=== PATIENT | male | born 1965 | race African-American/Black ===

== ENCOUNTER 2018-12-20 06:38 | Emergency (ER) | payer MEDICAID ==
[~2018-12-20] VITALS: Ht 167.6 cm; Wt 68.7 kg
[~2018-12-20 06:38] MED LIST: ASPI-611 PO; HYDR-4383 PO; LANTUS SQ; LISI-222 PO
[2018-12-20 06:39] VITALS: BP 141/105
[2018-12-20] MEDS ORDERED: NO HOME MEDS (07:33)
[2018-12-20 07:35] LABS: URINE AMPHETAMINE SCREEN POSITIVE (Neg); URINE BARBITUATE SCREEN NEGATIVE (Neg); URINE BENZODIAZEPINES SCREEN NEGATIVE (Neg); URINE CANNABINOID SCREEN POSITIVE (Neg); URINE COCAINE SCREEN NEGATIVE (Neg); URINE METHADONE SCREEN NEGATIVE (Neg); URINE OPIATE SCREEN NEGATIVE (Neg); URINE PHENCYCLIDINE SCREEN NEGATIVE (Neg)
[2018-12-20 07:35] LABS: BASOPHILS % (AUTO) 0.3 % (0-1); EOSINOPHILS % (AUTO) 0.6 % (0-6); HEMATOCRIT 44.8 % (42.0-52.0); HEMOGLOBIN 15.3 g/dl (14.0-17.9); LYMPHOCYTES # (AUTO) 0.9 X10'3 (1.1-4.8); LYMPHOCYTES % (AUTO) 17.2 % (21-51); MEAN CORPUSCULAR HEMOGLOBIN 32.2 PG (27.0-31.0); MEAN CORPUSCULAR HGB CONC 34.2 % (33.0-36.5); MEAN CORPUSCULAR VOLUME 94.2 FL (78-98); MEAN PLATELET VOLUME 10.6 FL (7.4-10.4); MONOCYTES # (AUTO) 0.3 X10'3 (0-0.9); MONOCYTES % (AUTO) 6.3 % (2-12); NEUTROPHILS % (AUTO) 75.6 % (42-75); PLATELET COUNT 167 X10'3 (140-440); RED BLOOD COUNT 4.75 X10'6 (4.70-6.10); RED CELL DISTRIBUTION WIDTH 12.2 % (11.5-14.5); WHITE BLOOD COUNT 5.3 X10'3 (4.5-11.0)
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
[2018-12-20 07:52] LABS: ALANINE AMINOTRANSFERASE 137 U/L (12-78); ALBUMIN 3.7 G/DL (3.4-5.0); ALBUMIN/GLOBULIN RATIO 0.8 (1.1-1.5); ALKALINE PHOSPHATASE 299 IU/L (46-116); ANION GAP 8 (8-16); ASPARTATE AMINO TRANSFERASE 70 U/L (10-37); BILIRUBIN,TOTAL 0.4 MG/DL (0.1-1.0); BLOOD UREA NITROGEN 12 MG/DL (7-18); BUN/CREATININE RATIO 10.9 (5.4-32.0); CALCIUM 8.7 MG/DL (8.5-10.1); CHLORIDE 91 MMOL/L (99-107); ETHANOL < 0.010 GM/DL (0.0-0.010); POTASSIUM 4.5 MMOL/L (3.5-5.1); SODIUM 130 MMOL/L (135-145); TOTAL CARBON DIOXIDE 31.2 MMOL/L (24-32); TOTAL PROTEIN 8.2 G/DL (6.4-8.2); eGFR 85 ML/MIN
[2018-12-20 08:01] LABS: GLUCOSE 601 MG/DL (70-104)
[2018-12-20] MEDS ORDERED: metFORMIN 500mg tablet PO ONE (08:10)
[2018-12-20] MEDS ORDERED: normal saline 1000ML IV soln IV ONE (08:10)
--- NOTE | 2018-12-20 08:10 | NUR ---
GAVE PT SANDWICH, CHEESESTICK, MILK AND APPLESAUCE, [facility] ORDERED BREAKFAST TRAY.
--- NOTE | 2018-12-20 08:20 | NUR ---
STARTED 20 GAUGE IV RIGHT HAND PER DR VAZQUEZ ORDERS DUE TO BG 601
[2018-12-20] MEDS ORDERED: METF500C MC (08:45)
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
--- NOTE | 2018-12-20 09:16 | NUR ---
[employer] AT BEDSIDE, IV REMOVED, CATH INTACT. PATEINT COOPERATIVE AND WALKED OUT ED WITH [employer].
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
== END 2018-12-20 09:19 | disposition home or self-care (01) ==
LOC: ER 06:39
DX: E11.65 Type 2 diabetes mellitus with hyperglycemia (principal); I10 Essential (primary) hypertension; F32.9 Major depressive disorder, single episode, unspecified; F12.90 Cannabis use, unspecified, uncomplicated; F15.90 Other stimulant use, unspecified, uncomplicated; Z90.49 Acquired absence of other specified parts of digestive tract; Z56.0 Unemployment, unspecified; Z59.0 Homelessness; Z88.6 Allergy status to analgesic agent; Z88.8 Allergy status to other drugs, medicaments and biological substances
CPT/HCPCS: 36415; 80053; 80305; 80320; 85025; 96360; 99283; J7030

== ENCOUNTER 2019-11-04 07:20 | Inpatient (IN) | payer MEDICAID ==
[~2019-11-04] VITALS: Ht 167.6 cm; Wt 71.8 kg
[~2019-11-04 07:20] MED LIST changes: -ASPI-611 PO; -HYDR-4383 PO; -LANTUS SQ; -LISI-222 PO; +NO HOME MEDS
--- NOTE | 2019-11-04 10:30 | NUR ---
Pt. transferred from [facility] for SI without plan. Pt. 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 Pt. denies hearing voices. Pt. states, "I feel like my life has been getting out of control for the last year". Pt. is a type 2 diabetic and receives Insulin Glargine BID and Lispro on a sliding scale. Pt. calm and cooperative upon admission. A&Ox4.
[2019-11-04] MEDS ORDERED: hydrOXYzine 25 MG tablet PO PRN (10:50)
[2019-11-04] MEDS ORDERED: magnesium hydroxide 30ml (MOM) UD suspension PO PRN (10:50)
[2019-11-04] MEDS ORDERED: acetaminophen 325mg tablet PO PRN ×2 (10:50)
[2019-11-04] MEDS ORDERED: LORazepam 1 MG tablet PO PRN (10:50)
[2019-11-04] MEDS ORDERED: loperamide 2mg capsule PO PRN (10:50)
[2019-11-04] MEDS ORDERED: mag hydrox/Alum hydrox/simeth 30ml oral suspension PO PRN (10:50)
[2019-11-04 11:00] VITALS: BP 127/79
[2019-11-04] MEDS ORDERED: LISI2.5T2 PO ×2 (12:49→14:27)
[2019-11-04] MEDS ORDERED: PALI3TAB PO (12:49)
[2019-11-04] MEDS ORDERED: INSU100I31 SUBCUT ×2 (12:49→14:29)
[2019-11-04] MEDS ORDERED: PRAZ5CAP PO (12:49)
[2019-11-04] MEDS ORDERED: dextrose 50%-water 50ml dispensing syringe IV PRN ×2 (14:10)
[2019-11-04] MEDS ORDERED: dextrose ORAL solution 15 GM/59 ML bottle PO PRN ×2 (14:10)
[2019-11-04] MEDS ORDERED: glucagon, human recombinant 1mg kit SUBCUT PRN (14:10)
[2019-11-04] MEDS ORDERED: MESSAGE TO PHARMACY PO ONE (14:10)
[2019-11-04] MEDS ORDERED: INSU100I31 SQ (14:27)
[2019-11-04] MEDS ORDERED: insulin Lispro (HumaLOG) vial - multi-dose SQ SCH (14:30)
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
--- NOTE | 2019-11-04 16:24 | NUR ---
DM consult, last A1c 11.2 from 02/14/18, a new A1c is pending. Addendum: 11/04/19 at [address] Amended: Links added.
[2019-11-04] MEDS: nicotine 21mg patch - 24 hr TD SCH (17:30)
[2019-11-04] MEDS: divalproex sodium 500mg tablet.DR PO SCH (17:34)
[2019-11-04 20:00] VITALS: BP 114/79
[2019-11-04] MEDS ORDERED: insulin glargine (Lantus) pen - multi-dose SQ SCH ×4 (20:00→21:00)
[2019-11-04] MEDS: insulin glargine (Lantus) pen - multi-dose SQ SCH (20:45)
--- NOTE | 2019-11-05 05:14 | NUR ---
Nursing Progress Note: Legal hold: 5150 Client on voluntary/involuntary status for DTS Report received from TOO Tripathi, with use of SBAR. Why are they here: Pt. transferred from [facility] for SI without plan. Pt. 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 Pt. denies hearing voices. Pt. states, "I feel like my life has been getting out of control for the last year". Pt. is a type 2 diabetic and receives Insulin Glargine BID and Lispro on a sliding scale. Pt. calm and cooperative upon admission. A&Ox4. Assessment What has happened this shift: Patient laying in bed asleep at the beginning of shift. Patient is pleasant and cooperative with all care; compliant with medication. Patient partook in HS snack in the group room. HS FSBG 374 and received 26 units of Lantus per MD order. No c/o or observation of discomfort. He was observed appropriately socializing with his roommate while the two walked the hallway. Pt went back to bed shortly after snack but got up and out of bed throughout the night. Pt denies SI, stating, "not right not" and denies HI, A/VH this shift. S/I, H/I: Denies this shift A/VH: Denies this shift Sleep: Refer to sleep assessment ADL's: Independent Group attendance: No groups this shift Were meds taken: Yes; Lantus only Any med S/E: None observed or reported Mental Status Exam Appearance: Clean, green unit scrubs and nonskid socks Eye contact: Direct Behavior: Pleasant, cooperative, briefly socializing and mostly sleeping Speech: Clear, steady, audible Mood: "ok" Affect: Flat Thought process: Linear Thought Content: Unable to assess Cognition: A/O Insight: Fair Judgment: Fair Interventions PRN's used: None Therapeutic interventions: 1:1 assessment, active listening, reality orientation, positive reinforcement, maintained safe therapeutic milieu, medication administration/education/monitoring, Q15 min safety checks. Restraints/seclusion/emergency medication: None Justification of Continued Inpatient Treatment:[]
[2019-11-05 08:00] VITALS: BP 131/90
[2019-11-05] MEDS ORDERED: nicotine 21mg patch - 24 hr TD SCH (08:00)
[2019-11-05] MEDS ORDERED: prazosin 1mg capsule PO SCH (08:00)
[2019-11-05] MEDS ORDERED: PALIPERIDONE 3 MG TAB.ER.24 PO SCH (08:00)
[2019-11-05] MEDS: lisinopril 2.5mg tablet PO SCH (08:02)
[2019-11-05] MEDS: divalproex sodium 500mg tablet.DR PO SCH ×2 (08:02→18:06)
[2019-11-05] MEDS: insulin glargine (Lantus) pen - multi-dose SQ SCH ×2 (08:35→21:44)
[2019-11-05 09:59] LABS: CHOL/HDL RATIO 2.9 (0.00-4.99); CHOLESTEROL 130 MG/DL (0-200); HDL CHOLESTEROL 45 MG/DL (35-60); LDL CHOLESTEROL 79 MG/DL (50-100); TRIGLYCERIDES 62 MG/DL (20-135)
[2019-11-05] MEDS ORDERED: FLU VACC QS2019-20 36MOS UP/PF 60 MCG/0.5 ML SYRINGE IMVAC ONE (10:00)
[2019-11-05] MEDS ORDERED: paliperidone palmitate inj 234 MG/1.5 ML SYRINGE IM ONE (10:40)
--- NOTE | 2019-11-05 13:13 | NUR ---
F/u for DM consult: Patient's current A1c is 12.0 up from 11.2 from 02/14/18. BG range 308-450 since admit, currently on glycemic protocol and CHO controlled diet with documented 75-100% PO intake meeting nutrient needs. Pt hx illicit drug abuse and homeless, admit with depression with schizophrenia and SI. DM education not appropriate at this time. LBM 11/04. No edema or wounds. Will continue to follow. Recommendations: 1) Continue CHO controlled diet 2) Routine accu-checks 3) Bowel care PRN 4) Weekly wts Addendum: 11/05/19 at [address] Amended: Links added.
[2019-11-05] MEDS: insulin Lispro (HumaLOG) vial - multi-dose SQ SCH ×2 (14:10→18:19)
[2019-11-05] MEDS: nicotine 21mg patch - 24 hr TD SCH (15:41)
[2019-11-05 17:30] LABS: BASOPHILS % (AUTO) 0.3 % (0-1); EOSINOPHILS # (AUTO) 0.2 X10'3 (0-0.9); EOSINOPHILS % (AUTO) 4.8 % (0-6); HEMATOCRIT 38.5 % (42.0-52.0); LYMPHOCYTES # (AUTO) 2.3 X10'3 (1.1-4.8); LYMPHOCYTES % (AUTO) 45.1 % (21-51); MEAN CORPUSCULAR HEMOGLOBIN 31.9 PG (27.0-31.0); MEAN CORPUSCULAR HGB CONC 33.9 g/dL (33.0-36.5); MEAN CORPUSCULAR VOLUME 94.2 FL (78-98); MEAN PLATELET VOLUME 9.9 FL (7.4-10.4); MONOCYTES # (AUTO) 0.7 X10'3 (0-0.9); MONOCYTES % (AUTO) 14.7 % (2-12); NEUTROPHILS # (AUTO) 1.8 X10'3 (1.8-7.7); NEUTROPHILS % (AUTO) 35.1 % (42-75); PLATELET COUNT 175 X10'3 (140-440); RED BLOOD COUNT 4.09 X10'6 (4.70-6.10); RED CELL DISTRIBUTION WIDTH 12.7 % (11.5-14.5); WHITE BLOOD COUNT 5.1 X10'3 (4.5-11.0)
[2019-11-05 17:34] LABS: ALBUMIN 3.1 G/DL (3.4-5.0); ANION GAP 4 (8-16); BLOOD UREA NITROGEN 20 MG/DL (7-18); CALCIUM 9.1 MG/DL (8.5-10.1); CHLORIDE 101 MMOL/L (99-107); CREATININE 0.87 MG/DL (0.60-1.10); GLUCOSE 93 MG/DL (70-104); SODIUM 137 MMOL/L (135-145); TOTAL CARBON DIOXIDE 31.8 MMOL/L (24-32); eGFR > 90 ML/MIN
--- NOTE | 2019-11-05 17:45 | NUR ---
Nursing Progress Note: Legal hold: 5150 Client on voluntary/involuntary status for DTS Report received from TOO Chau, with use of SBAR. Why are they here: Pt. transferred from [facility] for SI without plan. Pt. 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 Pt. denies hearing voices. Pt. states, "I feel like my life has been getting out of control for the last year". Pt. is a type 2 diabetic and receives Insulin Glargine BID and Lispro on a sliding scale. Assessment What has happened this shift: Pt. awake at start of shift and seen pacing the hallway. Pt.s AM CBG was 308. Pt. given 26 units Lantus. Pt. took all medications and ate breakfast. Pt. ate all meals in the community room. Pt. reports SI without a plan and denies HI, A/V Hallucinations. Pt. reports his main concern is getting onto social security and wants to talk to a social work administrator. Pt. went to group. Pt.s noon CBG was 450 and pt. given 24.5 units Humolog. Pt. given Invega Sustaina 234mg IM in afternoon. Pt. given influenza vaccine. Pt.s 1700 CBG was 82, pt. c/o of lightheadedness/dizziness and pt. ate his dinner and reported feeling better. RN contacted pt.s provider and Ms. Corona ordered decrease in Lantus to 25 units BID and pt. to remain at level one sliding scale. Pt. given 2 units of insulin based on level one carbs consumed at dinner. Pt. awake at start of shift. S/I, H/I: SI without a plan. A/VH: Denies Sleep: Pt. napped in the afternoon. ADL's: Independent Group attendance: Yes Were meds taken: Yes Any med S/E: None observed or reported Mental Status Exam Appearance: Clean, green unit scrubs and nonskid socks Eye contact: Direct Behavior: Pleasant and cooperative. Socializes appropriately. Speech: WNL Mood: Euthymic with some anxiety Affect: Congruent with mood Thought process: Linear Thought Content: Focused on getting social security Cognition: A/Ox4 Insight: Fair Judgment: Fair Interventions PRN's used: None Therapeutic interventions: 1:1 assessment, active listening, reality orientation, positive reinforcement, maintained safe therapeutic milieu, medication administration/education/monitoring, Q15 min safety checks. Therapeutic interventions: Ensured contract for safety, provided clear and simple instructions, Provided monitoring of blood sugars and adjustment of insulin as needed, monitored behaviors and need for intervention, and maintained Q 15 min safety checks. Restraints/seclusion/emergency medication: NA Justification of Continued Inpatient Treatment: The patient is requiring stabilization and further evaluation for his psychiatric symptoms. Pt. is suicidal without a plan.
[2019-11-05 20:00] VITALS: BP 103/66
[2019-11-05] MEDS ORDERED: insulin glargine (Lantus) pen - multi-dose SQ SCH (20:00)
[2019-11-05] MEDS: NICOTINE POLACRILEX 2 MG LOZENGE BC PRN (20:43)
[2019-11-05] MEDS ORDERED: ibuprofen tablet 400 MG TABLET PO PRN (21:25)
[2019-11-05] MEDS: prazosin 1mg capsule PO SCH (21:41)
--- NOTE | 2019-11-06 05:47 | NUR ---
Nursing Progress Note: Legal hold: 5150 Client on voluntary/involuntary status for DTS Report received from TOO Tripathi, with use of SBAR. Why are they here: Pt. transferred from [facility] for SI without plan. Pt. 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 Pt. denies hearing voices. Pt. states, "I feel like my life has been getting out of control for the last year". Pt. is a type 2 diabetic and receives Insulin Glargine BID and Lispro on a sliding scale. Pt. calm and cooperative upon admission. A&Ox4. Assessment What has happened this shift: Pt visible on the unit, socializing with peers appropriately and joking with staff at the beginning of shift. Pt is pleasant and cooperative with all care, compliant with all medication. He started Prazosin this shift with no ASE observed or reported this shift. Pt is on permanent level sliding scale and Lantus 25units BID. Pt explained +VH describing future and past events and denies AH. Denies SI and HI. Pt explained his difficulty sleeping the previous night was r/t nightmare; this editorial writer removed nicotine patch and educated pt. S/I, H/I: Denies this shift A/VH: +VH Sleep: Refer to sleep assessment ADL's: Independent Group attendance: No groups this shift Were meds taken: Yes Any med S/E: None observed or reported Mental Status Exam Appearance: Clean, green unit scrubs and nonskid socks Eye contact: Direct Behavior: Pleasant, cooperative, socializing Speech: Clear, steady, audible Mood: "ok" Affect: Bright Thought process: Linear Thought Content: Joking with staff, talked about his tattoos Cognition: A/O Insight: Fair Judgment: Fair Interventions PRN's used: Ibuprofen Therapeutic interventions: 1:1 assessment, active listening, reality orientation, positive reinforcement, maintained safe therapeutic milieu, medication administration/education/monitoring, Q15 min safety checks. Restraints/seclusion/emergency medication: None Justification of Continued Inpatient Treatment:The patient is requiring stabilization and further evaluation for his psychiatric symptoms. Pt. is suicidal without a plan.
[2019-11-06 08:00] VITALS: BP 109/79
[2019-11-06] MEDS: insulin glargine (Lantus) pen - multi-dose SQ SCH (08:00)
[2019-11-06] MEDS: lisinopril 2.5mg tablet PO SCH (08:41)
[2019-11-06] MEDS: NICOTINE POLACRILEX 2 MG LOZENGE BC PRN ×2 (08:41→14:49)
[2019-11-06] MEDS: divalproex sodium 500mg tablet.DR PO SCH ×2 (08:41→17:03)
[2019-11-06] MEDS: insulin Lispro (HumaLOG) vial - multi-dose SQ SCH ×3 (09:36→18:31)
[2019-11-06] MEDS: HYDROcodone/acetaminophen 5mg/325mg tablet PO PRN ×2 (12:22→20:47)
--- NOTE | 2019-11-06 16:45 | NUR ---
Nursing Progress Note: Legal hold: 5150 Client on involuntary/5150 status for DTS Report received from TOO Chau, with use of SBAR. Why are they here: Pt. transferred from [facility] for SI without plan. Pt. 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 Pt. denies hearing voices. Pt. states, "I feel like my life has been getting out of control for the last year". Pt. is a type 2 diabetic and receives Insulin Glargine BID and Lispro on a sliding scale. Assessment What has happened this shift: Received Pt awake in his room w/o distress at beginning of shift. Pt pleasant and cooperative and ate breakfast with others and interacted well. Pt enjoyed talking and joking with others at meals and spent time watching football and socializing. Pt spent time in his room doing intricate coloring templates and keeping my mind off bad thoughts. Reports some SI but has no plan or intent at this time. Pt speaks of future plans and ideas. Pts blood sugar (BS) this AM was 366 and he received Lantus 25u and 11u Humalog. BS before lunch was 350 and Pt given 9u of Humalog. Pt used nicotine Luis Eduardo. X2 and received prn [place] and naproxen for back pain, with good effect. Overall Pt A&O X4, compliant with meds, and interacts with others appropriately. S/I, H/I: SI without a plan or intent A/VH: Denies Sleep: None on this shift ADL's: Independent Group attendance: Yes Were meds taken: Yes Any med S/E: None observed or reported Mental Status Exam Appearance: Groomed in street clothes Eye contact: Direct Behavior: Pleasant and cooperative. Socializes appropriately. Speech: WNL Mood: Euthymic Affect: Congruent with mood Thought process: Linear Thought Content: Football, Pain Cognition: A/Ox4 Insight: Fair Judgment: Fair Interventions PRN's used: Nicotine Luis Eduardo. X2, [place], Naproxen Therapeutic interventions: 1:1 assessment, active listening, reality orientation, positive reinforcement, maintained safe therapeutic milieu, medication administration/education/monitoring, Q15 min safety checks. Provided monitoring of blood sugars and adjustment of insulin as needed, monitored behaviors and need for intervention, and maintained Q 15 min safety checks. Restraints/seclusion/emergency medication: NA Justification of Continued Inpatient Treatment: The patient is requiring stabilization and further evaluation for his psychiatric symptoms. Pt. is suicidal without a plan.
[2019-11-06] MEDS: nicotine 21mg patch - 24 hr TD SCH (17:05)
[2019-11-06 20:00] VITALS: BP 125/75
[2019-11-06] MEDS: prazosin 1mg capsule PO SCH (20:47)
[2019-11-06] MEDS ORDERED: insulin glargine (Lantus) pen - multi-dose SQ SCH (21:00)
--- NOTE | 2019-11-07 00:29 | NUR ---
Nursing Progress Note: Legal hold: 5150 Client on involuntary/5150 status for DTS Report received from TOO Colón, with use of SBAR. Why are they here: Pt. transferred from [facility] for SI without plan. Pt. 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 Pt. denies hearing voices. Pt. states, "I feel like my life has been getting out of control for the last year". Pt. is a type 2 diabetic and receives Insulin Glargine BID and Lispro on a sliding scale. Assessment What has happened this shift: The patient was received in the group room. He was sitting watching tv. He reports that, "due to homelessness and my age, I'm having hard time. I'm a meth addict, I have to stay awake, so people can't steal my stuff." Patient states that he has Bipolar issues. But does not explain. He states that his mental illness has driven any family and friends from his life. He believes that if he tries anything, he'll fail. "I've tried and failed so many times that I'm afraid of failing again. Patient states that he just wants to be left alone. "People tend to talk to me when I don't want them to. Just don't irritate me and everything will be fine." The patient c/o low back pain. He was medicated with good relief. Patient spent the evening watching tv in group room. He took his HS meds then went to bed. S/I, H/I: Passive SI A/VH: Denies. Not seen responding to IS. Sleep: See sleep hours. ADL's: Independent Group attendance: Yes Were meds taken: Yes, BS 248 Any med S/E: None observed or reported Mental Status Exam Appearance: Disheveled, unshaven in street clothes. Eye contact: Avoids, looks down. Behavior: relaxing in group room until med pass, then bed. Speech: Normal rate/rhythm Mood: Depressed Affect: Congruent with mood Thought process: Linear, goal oriented. Thought Content: Homelessness, depression. Cognition: A/Ox4 Insight: Fair Judgment: Fair Interventions PRN's used: [place] with good relief. Therapeutic interventions: 1:1 assessment, active listening, reality orientation, positive reinforcement, maintained safe therapeutic milieu, medication administration/education/monitoring, Q15 min safety checks. Provided monitoring of blood sugars and adjustment of insulin as needed, monitored behaviors and need for intervention, and maintained Q 15 min safety checks. Restraints/seclusion/emergency medication: NA Justification of Continued Inpatient Treatment: The patient is requiring stabilization and further evaluation for his psychiatric symptoms. Pt. is suicidal without a plan.
[2019-11-07 08:00] VITALS: BP 110/80
[2019-11-07] MEDS ORDERED: insulin glargine (Lantus) pen - multi-dose SQ SCH (08:00)
[2019-11-07] MEDS: insulin Lispro (HumaLOG) vial - multi-dose SQ SCH ×2 (08:29→18:05)
[2019-11-07] MEDS: divalproex sodium 500mg tablet.DR PO SCH ×2 (08:34→17:14)
[2019-11-07] MEDS: lisinopril 2.5mg tablet PO SCH (08:34)
[2019-11-07] MEDS: HYDROcodone/acetaminophen 5mg/325mg tablet PO PRN ×2 (09:27→20:23)
[2019-11-07] MEDS: NICOTINE POLACRILEX 2 MG LOZENGE BC PRN (09:57)
--- NOTE | 2019-11-07 14:35 | NUR ---
DISCHARGE PLANNING Met with Ct to discuss his plan for treatment for meth addiction. He reported he is willing to go to the [facility] program. However, he had multiple complaints about the [facility] and how it should be run. He reported he was kicked out of the [facility] a year and half ago with no services. Personnel Quality Assurance Auditor will assist with Ct's desire to go to the [facility]. ERIKA Godfrey
[2019-11-07] MEDS: nicotine 21mg patch - 24 hr TD SCH (15:47)
--- NOTE | 2019-11-07 16:14 | NUR ---
Nursing Progress Note: Shaun Legal hold: 5150 Client on involuntary/5150 status for DTS Report received from TOO Montanez, with use of SBAR. Why are they here: Pt. transferred from [facility] for SI without plan. Pt. 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 Pt. denies hearing voices. Pt. states, "I feel like my life has been getting out of control for the last year". Pt. is a type 2 diabetic and receives Insulin Glargine BID and Lispro on a sliding scale. Assessment: Client was awake to begin the shift and was initially oppositional with this brief writer. After redirection, client was amicable to care and medications. No S/S of hyper/hypo glycemia noted. Client did complain of pain and was medicated per orders with good effect obtained this am. Client has attended all groups today and is very social with both staff as well as peers. He has been compliant with all aspects of his care and is able to make his needs be known. He is able to contract for safe unit behaviors and he states that, " a discharge would be nice". S/I, H/I: Passive SI A/VH: Denies. Not seen responding to IS. Sleep: ADL's: Independent Group attendance: yes Were meds taken: yes Any med S/E: None observed or reported Mental Status Exam Appearance: Disheveled, unshaven in street clothes. Eye contact: Avoids, looks down. Behavior: relaxing in group room until med pass, then bed. Speech: Normal rate/rhythm Mood: Depressed Affect: Congruent with mood Thought process: Linear, goal oriented. Thought Content: Homelessness, depression. Cognition: A/Ox4 Insight: Fair Judgment: Fair Interventions PRN's used: [place] and Naproxen, Nicotine lozenges. Therapeutic interventions: 1:1 assessment, active listening, reality orientation, positive reinforcement, maintained safe therapeutic milieu, medication administration/education/monitoring, Q15 min safety checks. Provided monitoring of blood sugars and adjustment of insulin as needed, monitored behaviors and need for intervention, and maintained Q 15 min safety checks. Restraints/seclusion/emergency medication: NA Justification of Continued Inpatient Treatment: The patient is requiring stabilization and further evaluation for his psychiatric symptoms. Pt. is suicidal without a plan.
[2019-11-07 20:00] VITALS: BP 107/68
[2019-11-07] MEDS: prazosin 1mg capsule PO SCH (20:23)
[2019-11-07] MEDS: insulin glargine (Lantus) pen - multi-dose SQ SCH (20:31)
--- NOTE | 2019-11-08 01:44 | NUR ---
Nursing Progress Note: Legal hold: 5150 Client on involuntary status for DTS Report received from TOO Colón, with use of SBAR. Why are they here: Pt. transferred from [facility] for SI without plan. Pt. 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 Pt. denies hearing voices. Pt. states, "I feel like my life has been getting out of control for the last year". Pt. is a type 2 diabetic and receives Insulin Glargine BID and Lispro on a sliding scale. Assessment What has happened this shift: Received patient in bed. He easily woke for 1:1. Patient reports that he's feeling much better. "They started me on new psych meds today. Karishma also increased my insulin." (HS blood glucose 364) He reports that he's happy with the change. "I also went to groups today and fully participated." The patient has done well since he came here. he has been med compliant, gone to groups, and has much better attitude. Patient believes he's ready to discharge, but there is not yet a plan in place. "I'll go to the [facility] if I have to." S/I, H/I: Denies A/VH: Denies. "Not today." Sleep: See sleep hours. ADL's: Independent Group attendance: No groups at night. Were meds taken: Yes. Any med S/E: None observed or reported Mental Status Exam Appearance: Disheveled, dark skin, unshaven in street clothes. Eye contact: Direct. Behavior: Watched MNF, walked halls with another client, read in room Speech: Normal rate/rhythm Mood: "Feeling much better" Affect: Congruent with mood Thought process: Linear, goal oriented. Thought Content: Homelessness, depression. Cognition: A/Ox4 Insight: Fair Judgment: Fair Interventions PRN's used: [place] x1 with good relief. Therapeutic interventions: 1:1 assessment, active listening, reality orientation, positive reinforcement, maintained safe therapeutic milieu, medication administration/education/monitoring, Q15 min safety checks. Provided monitoring of blood sugars and adjustment of insulin as needed, monitored behaviors and need for intervention, and maintained Q 15 min safety checks. Restraints/seclusion/emergency medication: NA Justification of Continued Inpatient Treatment: The patient is requiring stabilization and further evaluation for his psychiatric symptoms. Pt. is suicidal without a plan.
[2019-11-08 08:00] VITALS: BP 120/78
[2019-11-08] MEDS ORDERED: ARIPIPRAZOLE 10 MG TABLET PO ONE ×2 (08:00→21:00)
[2019-11-08] MEDS ORDERED: aripiprazole 5mg tablet PO SCH ×2 (08:00)
[2019-11-08] MEDS: divalproex sodium 500mg tablet.DR PO SCH ×2 (08:04→17:45)
[2019-11-08] MEDS: lisinopril 2.5mg tablet PO SCH (08:04)
[2019-11-08] MEDS: insulin glargine (Lantus) pen - multi-dose SQ SCH ×2 (08:10→20:32)
[2019-11-08] MEDS: insulin Lispro (HumaLOG) vial - multi-dose SQ SCH ×2 (08:40→13:38)
--- NOTE | 2019-11-08 08:42 | NUR ---
[facility] signed a release for underwriter mortgage loan to speak with the [place] on his behalf. Called [facility] to request an application. Left message requesting a call back. ERIKA Godfrey
[2019-11-08] MEDS: NUT.TX.GLUC.INTOLER,LAC-FR,SOY (GLUCERNA) 237 ML PO SCH ×2 (13:37→18:00)
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
[2019-11-08] MEDS: nicotine 21mg patch - 24 hr TD SCH (16:17)
[2019-11-08 20:00] VITALS: BP 135/85
[2019-11-08] MEDS: prazosin 1mg capsule PO SCH (20:24)
[2019-11-08] MEDS: HYDROcodone/acetaminophen 5mg/325mg tablet PO PRN (20:25)
--- NOTE | 2019-11-09 00:02 | NUR ---
Nursing Progress Note: Legal hold: None Client on voluntary status for DTS Report received from IBRAHIMA Francis, with use of SBAR. Why are they here: Pt. transferred from [facility] for SI without plan. Pt. 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 Pt. denies hearing voices. Pt. states, "I feel like my life has been getting out of control for the last year". Pt. is a type 2 diabetic and receives Insulin Glargine BID and Lispro on a sliding scale. Assessment What has happened this shift: Received patient in bed. He continued to sleep until HS med pass. The patient woke for medicine, but remained groggy. "I'm in no mood to talk right now due to a med change that has made me sedated." While awake he was irritable and angry, refused to come out for snacks and be around his peers. He was compliant with medications, HS BG 332. The patient states that he is still feeling hopeless, helpless, and worthless. "I hope they don't make me leave yet, cause I'm not ready." S/I, H/I: SI. Says he has a plan, but won't divulge it. A/VH: Denies. Sleep: See sleep hours. ADL's: Independent Group attendance: No groups at night. Were meds taken: Yes. Any med S/E: None observed or reported Mental Status Exam Appearance: Disheveled, dark skin, unshaven, unclean and malodorous in street clothes. Eye contact: Direct. Behavior: Patient isolated to his room sleeping all night. Speech: Normal rate/rhythm Mood: "Angry" Affect: Congruent with mood Thought process: Linear, goal oriented. Thought Content: SI, discharge. Cognition: A/Ox4 Insight: Fair Judgment: Fair Interventions PRN's used: [place] x1 and Naproxen with good relief. Therapeutic interventions: 1:1 assessment, active listening, reality orientation, positive reinforcement, maintained safe therapeutic milieu, medication administration/education/monitoring, Q15 min safety checks. Provided monitoring of blood sugars and adjustment of insulin as needed, monitored behaviors and need for intervention, and maintained Q 15 min safety checks. Restraints/seclusion/emergency medication: NA Justification of Continued Inpatient Treatment: The patient is requiring stabilization and further evaluation for his psychiatric symptoms. Pt. is suicidal without a plan.
[2019-11-09] MEDS: divalproex sodium 500mg tablet.DR PO SCH (07:48)
[2019-11-09] MEDS: lisinopril 2.5mg tablet PO SCH (07:48)
[2019-11-09 08:00] VITALS: BP 126/91
[2019-11-09] MEDS: insulin glargine (Lantus) pen - multi-dose SQ SCH (08:00)
[2019-11-09] MEDS ORDERED: ARIPIPRAZOLE 10 MG TABLET PO ONE (08:00)
[2019-11-09] MEDS: NUT.TX.GLUC.INTOLER,LAC-FR,SOY (GLUCERNA) 237 ML PO SCH ×2 (08:52→13:19)
[2019-11-09] MEDS: insulin Lispro (HumaLOG) vial - multi-dose SQ SCH (09:09)
--- NOTE | 2019-11-09 11:01 | NUR ---
Reassessment: Pt PO 100% meals and Glucerna TIDWM meeting needs. LBM 11/07. Pt GLU consistently 300's on level 1 meal coverage; HIMANSHU d/w RN regarding increasing level per hyperglycemia protocol given pt on level 3 coverage previously. Will continue to monitor. Recommendations: 1) Continue CHO controlled diet 2) Routine accu-checks; dosage adjustments per hyperglycemia protocol 3) Bowel care PRN 4) Weekly wts Addendum: 11/09/19 at [address] Amended: Links added.
--- NOTE | 2019-11-09 12:00 | NUR ---
HIGHMOUNT Called the [place] and spoke to Elida regarding the Thu meeting. She reported if Ct does not attend today's meeting he will have to wait until Nov 30 due to the holidays on the next two Thu. Apprised Karishma of this. ERIKA Godfrey
[2019-11-09] MEDS ORDERED: aripiprazole 400mg suspension ER syringe IM ONE (12:20)
[2019-11-09] MEDS ORDERED: LISI2.5T2 PO (12:26)
[2019-11-09] MEDS ORDERED: PRAZ1CAP5 PO (12:26)
[2019-11-09] MEDS ORDERED: ARIP10TA15 PO (12:26)
[2019-11-09] MEDS ORDERED: DEXT15LI PO (12:26)
[2019-11-09] MEDS ORDERED: INSU100V11 SQ (12:26)
[2019-11-09] MEDS ORDERED: LANTUS SQ ×2 (12:26)
[2019-11-09] MEDS ORDERED: DIVA500T2 PO (12:26)
--- NOTE | 2019-11-09 13:57 | NUR ---
Nursing Discharge Note: Pt discharged from [facility] to the [facility], accompanied off [facility] by [facility] security. Pt states he will walk to the [facility]. Pt has been improving since admission and is in no acute emotional or physical distress. Pt calm with flat affect and denies SI. Pt valuables were inventoried and returned to him. He did not want nicotine replacement and understood discharge instructions.
[2019-11-09] MEDS ORDERED: ARIPIPRAZOLE 10 MG TABLET PO SCH ×2 (21:00)
[2019-11-10] MEDS ORDERED: ARIPIPRAZOLE 10 MG TABLET PO SCH (21:00)
== END 2019-11-09 13:55 | disposition short-term general hospital (02) | DRG 750 ==
LOC: ADULT MH 07:20
PROVIDERS: ADMIT Psychiatry & Neurology Psychiatry; ATTEND Psychiatry & Neurology Psychiatry
DX: F25.0 Schizoaffective disorder, bipolar type (principal); E11.9 Type 2 diabetes mellitus without complications; R45.851 Suicidal ideations; F12.90 Cannabis use, unspecified, uncomplicated; Z59.0 Homelessness; F17.210 Nicotine dependence, cigarettes, uncomplicated; F15.10 Other stimulant abuse, uncomplicated; F31.9 Bipolar disorder, unspecified; M54.5 Low back pain; B19.20 Unspecified viral hepatitis C without hepatic coma; F43.10 Post-traumatic stress disorder, unspecified; I10 Essential (primary) hypertension; Z79.4 Long term (current) use of insulin; Z79.899 Other long term (current) drug therapy; Z23 Encounter for immunization; Z88.5 Allergy status to narcotic agent; Z88.8 Allergy status to other drugs, medicaments and biological substances; Z90.49 Acquired absence of other specified parts of digestive tract
CPT/HCPCS: 36415; 80048; 80061; 82948; 83036; 85025; 87081; 99285; J1815; Q2037

== ENCOUNTER 2020-05-14 12:59 | Emergency (ER) | payer MEDICAID ==
[~2020-05-14] VITALS: Ht 167.6 cm; Wt 61.0 kg
[~2020-05-14 12:59] MED LIST changes: +ARIP10TA15 PO; +DEXT15LI PO; +DIVA500T2 PO; +INSU100V11 SQ; +LANTUS SQ; +LISI2.5T2 PO; -NO HOME MEDS; +PRAZ1CAP5 PO
[2020-05-14 14:13] LABS: BASOPHILS % (AUTO) 0.6 % (0-1); EOSINOPHILS % (AUTO) 0.7 % (0-6); HEMATOCRIT 41.4 % (42.0-52.0); HEMOGLOBIN 13.8 g/dl (14.0-17.9); LYMPHOCYTES # (AUTO) 1.4 X10'3 (1.1-4.8); LYMPHOCYTES % (AUTO) 27.1 % (21-51); MEAN CORPUSCULAR HEMOGLOBIN 31.6 PG (27.0-31.0); MEAN CORPUSCULAR HGB CONC 33.3 g/dL (33.0-36.5); MEAN CORPUSCULAR VOLUME 94.9 FL (78-98); MEAN PLATELET VOLUME 9.8 FL (7.4-10.4); MONOCYTES # (AUTO) 0.4 X10'3 (0-0.9); MONOCYTES % (AUTO) 8.2 % (2-12); NEUTROPHILS # (AUTO) 3.3 X10'3 (1.8-7.7); NEUTROPHILS % (AUTO) 63.4 % (42-75); PLATELET COUNT 161 X10'3 (140-440); RED BLOOD COUNT 4.36 X10'6 (4.70-6.10); RED CELL DISTRIBUTION WIDTH 12.1 % (11.5-14.5); WHITE BLOOD COUNT 5.2 X10'3 (4.5-11.0)
[2020-05-14 14:28] LABS: ALANINE AMINOTRANSFERASE 246 U/L (12-78); ALBUMIN 3.1 G/DL (3.4-5.0); ALBUMIN/GLOBULIN RATIO 0.7 (1.1-1.5); ALKALINE PHOSPHATASE 203 IU/L (46-116); ANION GAP 5 (8-16); ASPARTATE AMINO TRANSFERASE 129 U/L (10-37); BILIRUBIN,TOTAL 0.7 MG/DL (0.1-1.0); BLOOD UREA NITROGEN 6 MG/DL (7-18); BUN/CREATININE RATIO 6.4 (5.4-32.0); CALCIUM 8.8 MG/DL (8.5-10.1); CHLORIDE 94 MMOL/L (99-107); CREATININE 0.94 MG/DL (0.60-1.10); LIPASE 188 U/L (73-393); POTASSIUM 3.8 MMOL/L (3.5-5.1); SODIUM 128 MMOL/L (135-145); TOTAL CARBON DIOXIDE 29.3 MMOL/L (24-32); TOTAL PROTEIN 7.5 G/DL (6.4-8.2); eGFR > 90 ML/MIN
[2020-05-14 14:29] LABS: GLUCOSE 482 MG/DL (70-104)
[2020-05-14] MEDS ORDERED: insulin regular, human U-100 3ml vial - multi-dose SQ ONE ×2 (16:30→16:40)
[2020-05-14] MEDS ORDERED: insulin regular, human 10 units/0.1 ml syringe SQ ONE (16:30)
[2020-05-14] MEDS ORDERED: GLIP10TA3 PO (16:36)
--- NOTE | 2020-05-14 19:00 | NUR ---
Pt eating dinner. FBG 297. Qasim 2nd dose of 10 units humulin insulin. Urine sample sent to lab.
[2020-05-14 19:11] LABS: CLARITY,URINE CLEAR (Clear); COLOR,URINE YELLOW (Yellow); GLUCOSE, URINE >=1000 mg/dl (Neg); KETONES,URINE NEGATIVE (Neg); LEUKOCYTE ESTERASE ,URINE NEGATIVE (Neg); NITRITES, URINE NEGATIVE (Neg); OCCULT BLOOD,URINE TRACE-INTACT (Neg); PH,URINE 6.5 (4.8-8.0); PROTEIN,URINE 100 mg/dl (Neg)
[2020-05-14 19:17] LABS: UA COLLECTION TYPE NON-SPECIFIED
[2020-05-14 19:18] LABS: BACTERIA,URINE NONE SEEN /HPF (Neg); RBC,URINE 0-2 /HPF (0-2); SQUAMOUS EPITHELIAL CELL,UR FEW /LPF (FEW); WBC,URINE NONE SEEN /HPF (0-4)
[2020-05-14 20:30] VITALS: BP 135/99
== END 2020-05-14 20:34 | disposition home or self-care (01) ==
LOC: ER 13:01
DX: E11.65 Type 2 diabetes mellitus with hyperglycemia (principal); I10 Essential (primary) hypertension; F32.9 Major depressive disorder, single episode, unspecified; F12.90 Cannabis use, unspecified, uncomplicated; F15.90 Other stimulant use, unspecified, uncomplicated; Z90.49 Acquired absence of other specified parts of digestive tract; Z98.890 Other specified postprocedural states; Z72.89 Other problems related to lifestyle; Z59.0 Homelessness; Z56.0 Unemployment, unspecified; Z88.5 Allergy status to narcotic agent; Z88.8 Allergy status to other drugs, medicaments and biological substances; Z79.4 Long term (current) use of insulin; Z79.899 Other long term (current) drug therapy
CPT/HCPCS: 36415; 80053; 81001; 82948; 83690; 85025; 96372; 99284; J1815

== ENCOUNTER 2021-08-04 17:34 | Inpatient (IN) | payer MEDICAID ==
[~2021-08-04] VITALS: Ht 167.6 cm; Wt 68.2 kg
[~2021-08-04 17:34] MED LIST changes: +GLIP10TA3 PO; +LISI2.5T14 PO; -LISI2.5T2 PO
[2021-08-04] MEDS ORDERED: vancomycin/NS 1 GM ADD-VANTAGE 250 ML IV STA (23:00)
[2021-08-04] MEDS ORDERED: piperacillin/tazo 4.5gm/100ml 100 ML IV STA (23:00)
[2021-08-04] MEDS ORDERED: normal saline 1000ml 1,000 ML IV ONE (23:10)
[2021-08-04 23:44] LABS: BASOPHILS % (AUTO) 0.3 % (0-1); EOSINOPHILS # (AUTO) 0.1 X10'3 (0-0.9); EOSINOPHILS % (AUTO) 0.6 % (0-6); HEMATOCRIT 37.6 % (42.0-52.0); HEMOGLOBIN 12.6 g/dl (14.0-17.9); LYMPHOCYTES # (AUTO) 1.6 X10'3 (1.1-4.8); LYMPHOCYTES % (AUTO) 9.3 % (21-51); MEAN CORPUSCULAR HEMOGLOBIN 29.9 PG (27.0-31.0); MEAN CORPUSCULAR HGB CONC 33.4 g/dL (33.0-36.5); MEAN CORPUSCULAR VOLUME 89.3 FL (78-98); MEAN PLATELET VOLUME 8.7 FL (7.4-10.4); MONOCYTES # (AUTO) 1.6 X10'3 (0-0.9); MONOCYTES % (AUTO) 9.4 % (2-12); NEUTROPHILS % (AUTO) 80.4 % (42-75); PLATELET COUNT 330 X10'3 (140-440); WHITE BLOOD COUNT 17.5 X10'3 (4.5-11.0)
[2021-08-04 23:56] LABS: ALBUMIN 2.8 G/DL (3.4-5.0); ANION GAP 12 (8-16); BLOOD UREA NITROGEN 25 MG/DL (7-18); BUN/CREATININE RATIO 15.2 (5.4-32.0); C-REACTIVE PROTEIN 20.97 MG/DL (0.0-0.5); CALCIUM 9.1 MG/DL (8.5-10.1); CHLORIDE 98 MMOL/L (99-107); CREATININE 1.65 MG/DL (0.60-1.10); GLUCOSE 265 MG/DL (70-104); POTASSIUM 4.1 MMOL/L (3.5-5.1); SODIUM 135 MMOL/L (135-145); TOTAL CARBON DIOXIDE 24.9 MMOL/L (24-32); eGFR 53 ML/MIN
[2021-08-05] MEDS ORDERED: iohexol 300mg/ml 100ml inj. ONE (00:55)
[2021-08-05] MEDS ORDERED: ondansetron/PF 4mg/2ml inj IV PRN (01:10)
[2021-08-05] MEDS ORDERED: mag hydrox/Alum hydrox/simeth 30ml oral suspension PO PRN (01:10)
[2021-08-05] MEDS ORDERED: magnesium 4gm in 100ml NS 100 ML IV PRN (01:10)
[2021-08-05] MEDS ORDERED: acetaminophen 325mg tablet PO PRN (01:10)
[2021-08-05] MEDS ORDERED: magnesium hydroxide 30ml (MOM) UD suspension PO PRN (01:10)
[2021-08-05] MEDS ORDERED: magnesium Cl slow-release 64mg tablet PO PRN (01:10)
[2021-08-05] MEDS ORDERED: potassium Cl 40MEQ/1/2NS 520ml 520 ML IV PRN ×2 (01:10)
[2021-08-05] MEDS ORDERED: magnesium 2GM in 50ml NS 50 ML IV PRN (01:10)
[2021-08-05] MEDS ORDERED: potassium Cl 20 mEq SR tablet PO PRN ×2 (01:10)
[2021-08-05] MEDS ORDERED: HYDROcodone/acetaminophen 5mg/325mg tablet PO PRN (01:10)
[2021-08-05] MEDS ORDERED: morphine 2 MG/ML inj. syringe IV PRN (01:10)
[2021-08-05] MEDS ORDERED: dextrose 50%-water 50ml dispensing syringe IV PRN ×2 (01:50)
[2021-08-05] MEDS ORDERED: dextrose ORAL solution 15 GM/59 ML bottle PO PRN ×2 (01:50)
[2021-08-05] MEDS ORDERED: MESSAGE TO PHARMACY PO ONE (01:50)
[2021-08-05] MEDS ORDERED: glucagon, human recombinant 1mg kit SUBCUT PRN (01:50)
[2021-08-05] MEDS: normal saline 1000ml 1,000 ML IV SCH ×3 (02:08→22:08)
[2021-08-05] MEDS: lisinopril 20mg tablet PO SCH ×2 (03:01→08:29)
[2021-08-05] MEDS ORDERED: VANCOMYCIN 750MG IV in NS 250 ML IV ONE (03:05)
--- NOTE | 2021-08-05 03:08 | NUR ---
Pt verbaly confirmed medications listed on med rec but not absolutely sure of the dosages.
[2021-08-05 03:33] LABS: UA COLLECTION TYPE URINAL
[2021-08-05 03:35] LABS: CLARITY,URINE Clear (Clear); COLOR,URINE YELLOW (Yellow); GLUCOSE, URINE 100 mg/dl (Neg); KETONES,URINE 15 mg/dl (Neg); NITRITES, URINE NEGATIVE (Neg); OCCULT BLOOD,URINE MODERATE (Neg); PROTEIN,URINE 100 mg/dl (Neg)
[2021-08-05 03:36] LABS: BACTERIA,URINE FEW /HPF (Neg); LEUKOCYTE ESTERASE ,URINE NEGATIVE (Neg); MUCUS STRANDS FEW /LPF (Neg); SQUAMOUS EPITHELIAL CELL,UR FEW /LPF (FEW); UROBILINOGEN,URINE 0.2 E.U/dL (0.2-1.0); WBC,URINE 0-4 /HPF (0-4)
[2021-08-05 05:44] LABS: HEMOGLOBIN A1C 11.6 % (4.5-6.2)
[2021-08-05] MEDS: K and/or MAG REPLACEMENT MC SCH ×2 (08:00→20:00)
[2021-08-05] MEDS: cefepime 2g/NS 100ml ADVANTAGE 100 ML IV SCH ×2 (08:28→22:03)
[2021-08-05] MEDS: nicotine 14mg patch - 24hr TD SCH (08:28)
[2021-08-05] MEDS: heparin, porcine 5000 units/ml vial SQ SCH ×2 (08:30→20:57)
[2021-08-05] MEDS: HYDROcodone/acetaminophen 10/325mg tab PO PRN ×3 (08:59→20:55)
[2021-08-05] MEDS ORDERED: ZIPR40CA2 PO (10:24)
[2021-08-05] MEDS ORDERED: ATOR40TA71 PO (10:24)
[2021-08-05] MEDS ORDERED: ARIP5TAB14 PO (10:24)
[2021-08-05] MEDS ORDERED: LISI10TA27 PO (10:24)
[2021-08-05] MEDS ORDERED: INSU100I31 SQ (10:24)
[2021-08-05] MEDS ORDERED: ALOG25TA PO (10:24)
[2021-08-05] MEDS ORDERED: METF-438 PO (10:24)
--- NOTE | 2021-08-05 10:42 | NUR ---
waiting for humolog from pharmacy.
[2021-08-05] MEDS: insulin Lispro (HumaLOG) vial - multi-dose SQ SCH (11:02)
--- NOTE | 2021-08-05 15:27 | NUR ---
UNABLE TO TAKE PICTURE OF PT FOOT ER CAMERA IS NOT WORKING ,CHARGE NURSE DESTINY AWARE.
[2021-08-05] MEDS: divalproex sodium 500mg tablet.DR PO SCH (17:49)
[2021-08-05 20:47] VITALS: BP 165/108
[2021-08-05] MEDS ORDERED: temazepam 15mg capsule PO PRN (21:00)
[2021-08-05] MEDS: insulin glargine (Lantus) pen - multi-dose SQ SCH (21:00)
[2021-08-05] MEDS ORDERED: prazosin 1mg capsule PO SCH (21:00)
[2021-08-05] MEDS: aripiprazole 5mg tablet PO SCH (22:02)
[2021-08-05] MEDS ORDERED: vancomycin/NS 1 GM ADD-VANTAGE 250 ML IV SCH (23:00)
[2021-08-06] VITALS: BP 128/76
[2021-08-06 00:05] VITALS: BP 128/76
[2021-08-06] MEDS: HYDROcodone/acetaminophen 10/325mg tab PO PRN ×5 (01:57→21:30)
[2021-08-06 06:08] LABS: BASOPHILS # (AUTO) 0.1 X10'3 (0-0.2); EOSINOPHILS # (AUTO) 0.3 X10'3 (0-0.9); EOSINOPHILS % (AUTO) 1.5 % (0-6); MEAN PLATELET VOLUME 9.3 FL (7.4-10.4)
[2021-08-06 06:09] LABS: BASOPHILS % (AUTO) 0.8 % (0-1); HEMOGLOBIN 10.6 g/dl (14.0-17.9); LYMPHOCYTES # (AUTO) 2.1 X10'3 (1.1-4.8); LYMPHOCYTES % (AUTO) 11.5 % (21-51); MEAN CORPUSCULAR HEMOGLOBIN 30.9 PG (27.0-31.0); MEAN CORPUSCULAR HGB CONC 33.2 g/dL (33.0-36.5); MEAN CORPUSCULAR VOLUME 93.2 FL (78-98); MONOCYTES # (AUTO) 1.5 X10'3 (0-0.9); MONOCYTES % (AUTO) 8.4 % (2-12); NEUTROPHILS # (AUTO) 13.9 X10'3 (1.8-7.7); NEUTROPHILS % (AUTO) 77.8 % (42-75); PLATELET COUNT 300 X10'3 (140-440); RED BLOOD COUNT 3.44 X10'6 (4.70-6.10); RED CELL DISTRIBUTION WIDTH 13.2 % (11.5-14.5); WHITE BLOOD COUNT 17.9 X10'3 (4.5-11.0)
[2021-08-06 06:29] LABS: ALANINE AMINOTRANSFERASE 21 U/L (12-78); ALBUMIN/GLOBULIN RATIO 0.4 (1.1-1.5); ALKALINE PHOSPHATASE 101 IU/L (46-116); ANION GAP 13 (8-16); ASPARTATE AMINO TRANSFERASE 16 U/L (10-37); BILIRUBIN,TOTAL 0.4 MG/DL (0.1-1.0); BLOOD UREA NITROGEN 19 MG/DL (7-18); BUN/CREATININE RATIO 20.9 (5.4-32.0); CALCIUM 8.1 MG/DL (8.5-10.1); CHLORIDE 104 MMOL/L (99-107); CHOL/HDL RATIO 4.5 (0.00-4.99); CHOLESTEROL 118 MG/DL (0-200); CREATININE 0.91 MG/DL (0.60-1.10); GLUCOSE 159 MG/DL (70-104); HDL CHOLESTEROL 26 MG/DL (35-60); LDL CHOLESTEROL 71 MG/DL (50-100); MAGNESIUM 2.1 MG/DL (1.5-2.4); POTASSIUM 4.1 MMOL/L (3.5-5.1); SODIUM 138 MMOL/L (135-145); TOTAL CARBON DIOXIDE 21.1 MMOL/L (24-32); TOTAL PROTEIN 6.9 G/DL (6.4-8.2); TRIGLYCERIDES 64 MG/DL (20-135); eGFR > 90 ML/MIN
--- NOTE | 2021-08-06 06:45 | NUR ---
Patient in room [facility] 344. I have received report from Sweetie ALEXANDRA and had the opportunity to ask questions and assume patient care.
[2021-08-06] MEDS: normal saline 1000ml 1,000 ML IV SCH ×2 (07:10→12:24)
[2021-08-06] MEDS ORDERED: lisinopril 2.5mg tablet PO SCH (08:00)
[2021-08-06] MEDS: K and/or MAG REPLACEMENT MC SCH ×2 (08:00→20:00)
[2021-08-06] MEDS: divalproex sodium 500mg tablet.DR PO SCH ×2 (08:04→17:47)
[2021-08-06] MEDS: lisinopril 20mg tablet PO SCH (08:05)
[2021-08-06] MEDS: heparin, porcine 5000 units/ml vial SQ SCH ×2 (08:07→21:31)
[2021-08-06] MEDS: cefepime 2g/NS 100ml ADVANTAGE 100 ML IV SCH ×2 (08:07→20:00)
[2021-08-06] MEDS: nicotine 14mg patch - 24hr TD SCH (08:09)
[2021-08-06 09:02] VITALS: BP 147/90
[2021-08-06] MEDS: vancomycin/NS 1 GM ADD-VANTAGE 250 ML IV SCH (12:23)
[2021-08-06 12:46] VITALS: BP 170/107
[2021-08-06] MEDS: insulin Lispro (HumaLOG) vial - multi-dose SQ SCH ×2 (13:17→19:41)
--- NOTE | 2021-08-06 14:37 | NUR ---
Noted pt with T2DM, current A1c is 11.6%. Per physical assessment pt with a wound to right toe. Wound care has been consulted, pending assessment at this time. Pt seen at bedside provided with written and verbal protein and DM educations. Pt states he goes to the [facility] every [facility] though doesn't take his medications per rx as he is unsure of how to dose his insulin. Pt states he doesn't check his blood sugars because he doesn't have a glucometer however he can tell when he is having both a high a low blood sugar. Noted SW has been consulted. RD encouraged pt to discuss limitations with SW. All of patient's questions were answered at this time. Pt on a CHO controlled diet documented with average 75% PO intake. Pt reports an "all right" appetite, stating he is too stressed out right now. Pt provided with alternative menu to provide additional food options. Food preferences were obtained and d/w dietary, see below. Pt requests Ensure High Protein BIDBD, ONS to be sent pending physician approval in EMR. Pt denies food allergies and reports some difficulty chewing d/t missing teeth. Pt agrees to soft to chew foods with chopped meat, d/w dietary. Pt denies any constipation/diarrhea. LBM 08/04. Pt provided with RD contact information and encouraged to reach out for additional food preferences or questions regarding educations provided. Will remain available. Recommendations: 1) Continue CHO controlled diet 2) Soft to chew food with chop meat per pt request d/t difficulty chewing 3) Ensure High Protein BIDBD, pending physician approval in EMR 4) [place] food preferences: strawberry yogurt WB, diet Pepsi BIDLD, ice cream WS 5) Routine bowel care 6) Scaled weight this admit; weekly scaled weights thereafter Addendum: 08/06/21 at [address] Amended: Links added.
--- NOTE | 2021-08-06 15:31 | NUR ---
CALLED DR. LAMB ABOUT CONSULT THAT DR. DOMINGUEZ NOTIFIED HIM OF YESTERDAY A REMINDER.
--- NOTE | 2021-08-06 15:34 | NUR ---
ATTEMPTED TO REACH DR. MICHAELS FOR CONSULT ON THIS PATIENT PER REQUEST OF HOSPITALIST. WAS UNABLE TO REACH AT THIS TIME.
[2021-08-06 18:00] VITALS: BP 149/98
--- NOTE | 2021-08-06 18:30 | NUR ---
Patient in room [facility] 344. I have received report from Gonzalo RN and Nena vocational nursing instructor and had the opportunity to ask questions and assume patient care.
--- NOTE | 2021-08-06 18:58 | NUR ---
Problems reprioritized. Patient report given, questions answered & plan of care reviewed with CLYDE ALEXANDRA.
[2021-08-06] MEDS: aripiprazole 5mg tablet PO SCH (21:30)
[2021-08-06] MEDS: lactobacillus rhamnosus 10,000 MMU CELLS/CAPSULE PO SCH (21:30)
[2021-08-06] MEDS: insulin glargine (Lantus) pen - multi-dose SQ SCH (22:43)
[2021-08-06 23:30] VITALS: BP 131/78
[2021-08-07] MEDS: vancomycin/NS 1 GM ADD-VANTAGE 250 ML IV SCH ×2 (00:23→12:57)
[2021-08-07] MEDS: HYDROcodone/acetaminophen 10/325mg tab PO PRN ×4 (01:36→20:08)
[2021-08-07] MEDS: normal saline 1000ml 1,000 ML IV SCH ×3 (01:37→23:10)
[2021-08-07 06:05] LABS: BASOPHILS # (AUTO) 0.1 X10'3 (0-0.2); BASOPHILS % (AUTO) 0.5 % (0-1); EOSINOPHILS # (AUTO) 0.3 X10'3 (0-0.9); EOSINOPHILS % (AUTO) 1.5 % (0-6); LYMPHOCYTES # (AUTO) 1.7 X10'3 (1.1-4.8); MEAN PLATELET VOLUME 8.7 FL (7.4-10.4); MONOCYTES # (AUTO) 1.5 X10'3 (0-0.9); MONOCYTES % (AUTO) 7.5 % (2-12); RED CELL DISTRIBUTION WIDTH 13.3 % (11.5-14.5)
[2021-08-07 06:08] LABS: HEMATOCRIT 31.4 % (42.0-52.0); LYMPHOCYTES % (AUTO) 8.7 % (21-51); MEAN CORPUSCULAR HEMOGLOBIN 29.5 PG (27.0-31.0); MEAN CORPUSCULAR VOLUME 92.4 FL (78-98); NEUTROPHILS # (AUTO) 15.9 X10'3 (1.8-7.7); NEUTROPHILS % (AUTO) 81.8 % (42-75); PLATELET COUNT 361 X10'3 (140-440); WHITE BLOOD COUNT 19.5 X10'3 (4.5-11.0)
[2021-08-07 06:20] LABS: ALANINE AMINOTRANSFERASE 14 U/L (12-78); ALBUMIN 1.8 G/DL (3.4-5.0); ALBUMIN/GLOBULIN RATIO 0.4 (1.1-1.5); ALKALINE PHOSPHATASE 109 IU/L (46-116); ANION GAP 10 (8-16); ASPARTATE AMINO TRANSFERASE 11 U/L (10-37); BILIRUBIN,TOTAL 0.3 MG/DL (0.1-1.0); BLOOD UREA NITROGEN 13 MG/DL (7-18); BUN/CREATININE RATIO 15.1 (5.4-32.0); CALCIUM 8.3 MG/DL (8.5-10.1); CHLORIDE 107 MMOL/L (99-107); CREATININE 0.86 MG/DL (0.60-1.10); GLUCOSE 146 MG/DL (70-104); MAGNESIUM 2.1 MG/DL (1.5-2.4); POTASSIUM 3.9 MMOL/L (3.5-5.1); SODIUM 138 MMOL/L (135-145); TOTAL CARBON DIOXIDE 20.9 MMOL/L (24-32); TOTAL PROTEIN 6.8 G/DL (6.4-8.2); eGFR > 90 ML/MIN
--- NOTE | 2021-08-07 06:30 | NUR ---
Patient in room [facility] 344. I have received report from Sandy ALEXANDRA and had the opportunity to ask questions and assume patient care.
--- NOTE | 2021-08-07 06:57 | NUR ---
Problems reprioritized. Patient report given, questions answered & plan of care reviewed with Gonzalo RN.
[2021-08-07 08:00] VITALS: BP 143/85
[2021-08-07] MEDS: K and/or MAG REPLACEMENT MC SCH ×2 (08:00→20:00)
[2021-08-07] MEDS: divalproex sodium 500mg tablet.DR PO SCH ×2 (08:01→17:52)
[2021-08-07] MEDS: lisinopril 20mg tablet PO SCH (08:03)
[2021-08-07] MEDS: lactobacillus rhamnosus 10,000 MMU CELLS/CAPSULE PO SCH ×2 (08:04→20:00)
[2021-08-07] MEDS: nicotine 14mg patch - 24hr TD SCH (08:06)
[2021-08-07] MEDS: heparin, porcine 5000 units/ml vial SQ SCH ×2 (08:10→20:03)
[2021-08-07] MEDS: insulin Lispro (HumaLOG) vial - multi-dose SQ SCH ×3 (08:54→19:59)
[2021-08-07] MEDS: cefepime 2g/NS 100ml ADVANTAGE 100 ML IV SCH ×2 (09:11→20:03)
[2021-08-07 11:08] VITALS: BP 156/95
[2021-08-07] MEDS ORDERED: VANCOMYCIN LEVEL IV ONE (11:30)
[2021-08-07 12:20] VITALS: BP 156/95
[2021-08-07 18:00] VITALS: BP 158/95
--- NOTE | 2021-08-07 18:41 | NUR ---
I have received report from IBRAHIMA Sánchez and had the opportunity to ask questions and assume patient care.
--- NOTE | 2021-08-07 18:49 | NUR ---
Problems reprioritized. Patient report given, questions answered & plan of care reviewed with Amarjit ALEXANDRA.
[2021-08-07] MEDS: aripiprazole 5mg tablet PO SCH (20:00)
[2021-08-07] MEDS: insulin glargine (Lantus) pen - multi-dose SQ SCH (21:48)
[2021-08-08] VITALS: BP 156/88
[2021-08-08] MEDS: vancomycin/NS 1 GM ADD-VANTAGE 250 ML IV SCH (00:41)
[2021-08-08] MEDS: normal saline 1000ml 1,000 ML IV SCH ×2 (00:42→15:17)
[2021-08-08] MEDS: HYDROcodone/acetaminophen 10/325mg tab PO PRN ×3 (00:46→12:32)
--- NOTE | 2021-08-08 06:24 | NUR ---
Problems reprioritized. Patient report given, questions answered & plan of care reviewed with IBRAHIMA Richmond.
--- NOTE | 2021-08-08 06:43 | NUR ---
Patient in room [facility] 344. I have received report from Amarjit ALEXANDRA and had the opportunity to ask questions and assume patient care.
[2021-08-08 07:00] VITALS: BP 156/94
[2021-08-08] MEDS: morphine 2 MG/ML inj. syringe IV PRN ×2 (07:23→15:03)
[2021-08-08] MEDS: cefepime 2g/NS 100ml ADVANTAGE 100 ML IV SCH ×2 (07:27→19:47)
[2021-08-08] MEDS: nicotine 14mg patch - 24hr TD SCH (07:28)
[2021-08-08] MEDS: lactobacillus rhamnosus 10,000 MMU CELLS/CAPSULE PO SCH ×2 (07:28→19:47)
[2021-08-08] MEDS: heparin, porcine 5000 units/ml vial SQ SCH ×2 (07:28→19:49)
--- NOTE | 2021-08-08 07:35 | NUR ---
DM consult: Pt A1C addressed and education given. See previous assessment Addendum: 08/08/21 at [address] Amended: Links added.
[2021-08-08] MEDS: K and/or MAG REPLACEMENT MC SCH ×2 (08:00→20:00)
[2021-08-08] MEDS: divalproex sodium 500mg tablet.DR PO SCH ×2 (08:56→19:09)
[2021-08-08] MEDS: lisinopril 20mg tablet PO SCH (08:56)
[2021-08-08] MEDS: insulin Lispro (HumaLOG) vial - multi-dose SQ SCH ×3 (08:59→19:45)
[2021-08-08 09:01] LABS: BASOPHILS # (AUTO) 0.1 X10'3 (0-0.2); EOSINOPHILS # (AUTO) 0.1 X10'3 (0-0.9); HEMOGLOBIN 11.1 g/dl (14.0-17.9); LYMPHOCYTES # (AUTO) 1.4 X10'3 (1.1-4.8); LYMPHOCYTES % (AUTO) 6.1 % (21-51); MONOCYTES # (AUTO) 1.2 X10'3 (0-0.9); MONOCYTES % (AUTO) 5.4 % (2-12); NEUTROPHILS % (AUTO) 87.5 % (42-75); PLATELET COUNT 374 X10'3 (140-440); RED CELL DISTRIBUTION WIDTH 13.4 % (11.5-14.5)
[2021-08-08 09:04] LABS: BASOPHILS % (AUTO) 0.4 % (0-1); EOSINOPHILS % (AUTO) 0.6 % (0-6); HEMATOCRIT 34.4 % (42.0-52.0); MEAN CORPUSCULAR HEMOGLOBIN 29.8 PG (27.0-31.0); MEAN CORPUSCULAR HGB CONC 32.4 g/dL (33.0-36.5); MEAN CORPUSCULAR VOLUME 92.1 FL (78-98); MEAN PLATELET VOLUME 8.5 FL (7.4-10.4); NEUTROPHILS # (AUTO) 19.5 X10'3 (1.8-7.7); RED BLOOD COUNT 3.73 X10'6 (4.70-6.10); WHITE BLOOD COUNT 22.3 X10'3 (4.5-11.0)
[2021-08-08 09:14] LABS: ALANINE AMINOTRANSFERASE 14 U/L (12-78); ALBUMIN/GLOBULIN RATIO 0.3 (1.1-1.5); ALKALINE PHOSPHATASE 133 IU/L (46-116); ANION GAP 13 (8-16); ASPARTATE AMINO TRANSFERASE 17 U/L (10-37); BILIRUBIN,TOTAL 0.4 MG/DL (0.1-1.0); BLOOD UREA NITROGEN 8 MG/DL (7-18); BUN/CREATININE RATIO 9.8 (5.4-32.0); CALCIUM 8.6 MG/DL (8.5-10.1); CHLORIDE 106 MMOL/L (99-107); CREATININE 0.82 MG/DL (0.60-1.10); GLUCOSE 120 MG/DL (70-104); SODIUM 140 MMOL/L (135-145); TOTAL CARBON DIOXIDE 20.9 MMOL/L (24-32); TOTAL PROTEIN 7.8 G/DL (6.4-8.2); eGFR > 90 ML/MIN
--- NOTE | 2021-08-08 10:30 | NUR ---
I called photovoltaic technician, he said he will get the MRI done for this patient once he is done with the patient they are currently doing MRI procedure He gave me an estimate time of around 11:00 am today
[2021-08-08 10:33] LABS: LARGE PLATELETS FEW; PLATELET ESTIMATE NORMAL
[2021-08-08 10:34] LABS: SCHISTOCYTES FEW
[2021-08-08 10:35] LABS: BURR CELLS FEW
[2021-08-08 11:00] VITALS: BP 163/96
--- NOTE | 2021-08-08 11:16 | NUR ---
Patient currently in the MRI department, he was transported to MRI via wheelchair accompanied by the staff.
[2021-08-08] MEDS: VANCOmycin 1250MG/NS 250ml Bag 250 ML IV SCH ×2 (12:19→22:20)
--- NOTE | 2021-08-08 12:32 | NUR ---
SUZANNE Valadez notified about MRI of lower extremity result
--- NOTE | 2021-08-08 12:35 | NUR ---
Paged Dr. Richter PAGER ID: [phone] MESSAGE: Braden Richmond RN ext [phone]. RE: Juan Dunn. Patient's MRI lower extremity result in for your review. It says early acute osteomyelitis cannot be excluded
--- NOTE | 2021-08-08 13:02 | NUR ---
I noticed patient has no limited code arm band so I asked him to clarify his code status. Patient requested to be full code, states "If anything happen just save me!"Will page the doctor
--- NOTE | 2021-08-08 13:09 | NUR ---
Paged Dr. Richter PAGER ID: [phone] MESSAGE: Surgical Yi ALEXANDRA ext [phone]. RE: Juan Dunn. Patient's latest temp 103.2F HR 110 BP 162/102. Patient also stated he wants to be full code status. WBC 22.3 today. We just started Vanco. No latest lactic acid. Addendum: 08/08/21 at 1321 by Yi Martinez RN Charge nurse Dulce was updated about patient's condition and that Dr. Richter was paged
[2021-08-08] MEDS: acetaminophen 325mg tablet PO PRN ×2 (13:36→21:35)
[2021-08-08] MEDS: metroNIDAZOLE 500mg tablet PO SCH ×2 (13:36→21:32)
--- NOTE | 2021-08-08 16:10 | NUR ---
Surgical Yi RN ext [phone]. RE: Juan Dunn. Patient needs another MRI lower extremity today with CONTRAST this time. Can we just use the same screening form?
--- NOTE | 2021-08-08 17:08 | NUR ---
Per Jacob from MRI, he did MRI with and without contract today, he said he already spoke to Dr. Richter about this
--- NOTE | 2021-08-08 18:49 | NUR ---
Paged Dr. Richter ID: [phone] MESSAGE: Surgical Sofhia ext [phone]. RE: Juan Dunn. Follow up page Patient wants to be full code.
--- NOTE | 2021-08-08 18:50 | NUR ---
Dr. Richter called me I told him about the patient's wish to be full code in the event of emergency.
[2021-08-08] MEDS ORDERED: GADOTERATE MEGLUMINE 7.5 MMOL/15 ML VIAL IV ONE (19:31)
[2021-08-08] MEDS: insulin glargine (Lantus) pen - multi-dose SQ SCH (21:00)
[2021-08-08] MEDS: aripiprazole 5mg tablet PO SCH (21:32)
[2021-08-09] VITALS: BP 142/86
[2021-08-09] MEDS: HYDROcodone/acetaminophen 10/325mg tab PO PRN ×4 (01:13→17:37)
[2021-08-09] MEDS: normal saline 1000ml 1,000 ML IV SCH ×2 (05:00→17:37)
--- NOTE | 2021-08-09 06:33 | NUR ---
Problems reprioritized. Patient report given, questions answered & plan of care reviewed with IBRAHIMA Sanders.
--- NOTE | 2021-08-09 06:44 | NUR ---
Patient in room [facility] 344. I have received report from IBRAHIMA Ocasio and had the opportunity to ask questions and assume patient care.
[2021-08-09 07:00] VITALS: BP 153/90
[2021-08-09] MEDS: K and/or MAG REPLACEMENT MC SCH ×2 (08:00→20:00)
[2021-08-09] MEDS: cefepime 2g/NS 100ml ADVANTAGE 100 ML IV SCH ×2 (08:22→20:13)
[2021-08-09] MEDS: divalproex sodium 500mg tablet.DR PO SCH ×2 (08:22→17:37)
[2021-08-09] MEDS: lactobacillus rhamnosus 10,000 MMU CELLS/CAPSULE PO SCH ×2 (08:23→20:13)
[2021-08-09] MEDS: metroNIDAZOLE 500mg tablet PO SCH ×3 (08:23→20:53)
[2021-08-09] MEDS: heparin, porcine 5000 units/ml vial SQ SCH ×2 (08:23→20:13)
[2021-08-09] MEDS: lisinopril 20mg tablet PO SCH (08:23)
[2021-08-09] MEDS: nicotine 14mg patch - 24hr TD SCH (08:24)
[2021-08-09] MEDS: insulin Lispro (HumaLOG) vial - multi-dose SQ SCH ×2 (08:33→13:35)
[2021-08-09] MEDS: VANCOmycin 1250MG/NS 250ml Bag 250 ML IV SCH ×2 (10:51→22:58)
[2021-08-09 11:36] LABS: BASOPHILS # (AUTO) 0.1 X10'3 (0-0.2); BASOPHILS % (AUTO) 0.4 % (0-1); EOSINOPHILS # (AUTO) 0.2 X10'3 (0-0.9); EOSINOPHILS % (AUTO) 0.7 % (0-6); HEMATOCRIT 34.4 % (42.0-52.0); LYMPHOCYTES # (AUTO) 1.3 X10'3 (1.1-4.8); LYMPHOCYTES % (AUTO) 4.9 % (21-51); MEAN CORPUSCULAR HEMOGLOBIN 29.5 PG (27.0-31.0); MEAN CORPUSCULAR HGB CONC 32.1 g/dL (33.0-36.5); MEAN CORPUSCULAR VOLUME 91.8 FL (78-98); MEAN PLATELET VOLUME 8.1 FL (7.4-10.4); MONOCYTES # (AUTO) 1.6 X10'3 (0-0.9); MONOCYTES % (AUTO) 6.1 % (2-12); NEUTROPHILS % (AUTO) 87.9 % (42-75); PLATELET COUNT 358 X10'3 (140-440); RED BLOOD COUNT 3.75 X10'6 (4.70-6.10); RED CELL DISTRIBUTION WIDTH 13.4 % (11.5-14.5)
[2021-08-09 11:43] LABS: WHITE BLOOD COUNT 26.2 X10'3 (4.5-11.0)
[2021-08-09 11:46] LABS: ALANINE AMINOTRANSFERASE 14 U/L (12-78); ALBUMIN 1.6 G/DL (3.4-5.0); ALBUMIN/GLOBULIN RATIO 0.3 (1.1-1.5); ALKALINE PHOSPHATASE 181 IU/L (46-116); ANION GAP 10 (8-16); ASPARTATE AMINO TRANSFERASE 15 U/L (10-37); BILIRUBIN,TOTAL 0.3 MG/DL (0.1-1.0); BLOOD UREA NITROGEN 9 MG/DL (7-18); BUN/CREATININE RATIO 10.7 (5.4-32.0); CALCIUM 8.2 MG/DL (8.5-10.1); CHLORIDE 106 MMOL/L (99-107); CREATININE 0.84 MG/DL (0.60-1.10); GLUCOSE 115 MG/DL (70-104); MAGNESIUM 1.9 MG/DL (1.5-2.4); POTASSIUM 4.1 MMOL/L (3.5-5.1); SODIUM 138 MMOL/L (135-145); TOTAL CARBON DIOXIDE 21.9 MMOL/L (24-32); TOTAL PROTEIN 7.1 G/DL (6.4-8.2); eGFR > 90 ML/MIN
[2021-08-09 12:00] VITALS: BP 172/103
[2021-08-09 12:03] LABS: PLATELET ESTIMATE NORMAL; TOTAL CELLS COUNTED 100
[2021-08-09] MEDS: morphine 2 MG/ML inj. syringe IV PRN ×2 (13:36→20:53)
--- NOTE | 2021-08-09 15:07 | NUR ---
Initial: Pt admit for right foot DM ulcer. Per wound care notes wound is full thickness. Pt on a CHO controlled diet with fluctuating PO intake, averaging 50% PO intake throughout LOS though up to 75-100% at two most recent meals. ONS pending physician approval in EMR. Pt receiving requested food preferences and has RD contact information for additional preferences. LBM 08/08 following no BM for three days. No further nutrition intervention implemented at this time. Will continue to follow and make recommendations as appropriate. Recommendations: 1) Continue CHO controlled diet 2) Soft to chew food with chop meat per pt request d/t difficulty chewing 3) Ensure High Protein BIDBD, pending physician approval in EMR 4) [place] food preferences: strawberry yogurt WB, diet Pepsi BIDLD, ice cream WS 5) Routine bowel care 6) Scaled weight this admit; weekly scaled weights thereafter Addendum: 08/09/21 at [address] Amended: Links added.
[2021-08-09 18:00] VITALS: BP 147/84
--- NOTE | 2021-08-09 18:17 | NUR ---
Problems reprioritized. Patient report given, questions answered & plan of care reviewed with IBRAHIMA Duran.
--- NOTE | 2021-08-09 18:41 | NUR ---
Patient in room [facility] 344. I have received report from EBONY ALEXANDRA and had the opportunity to ask questions and assume patient care.
[2021-08-09] MEDS: aripiprazole 5mg tablet PO SCH (20:53)
[2021-08-09] MEDS: insulin glargine (Lantus) pen - multi-dose SQ SCH (21:00)
[2021-08-09] MEDS ORDERED: VANCOMYCIN LEVEL IV ONE (21:30)
[2021-08-10] VITALS: BP 158/90
[2021-08-10] MEDS: normal saline 1000ml 1,000 ML IV SCH ×3 (01:10→17:13)
[2021-08-10] MEDS: HYDROcodone/acetaminophen 10/325mg tab PO PRN ×2 (05:06→11:41)
--- NOTE | 2021-08-10 06:41 | NUR ---
Problems reprioritized. Patient report given, questions answered & plan of care reviewed with EBONY ALEXANDRA.
--- NOTE | 2021-08-10 06:54 | NUR ---
Patient in room [facility] 344. I have received report from IBRAHIMA Duran and had the opportunity to ask questions and assume patient care.
[2021-08-10 07:00] VITALS: BP 147/91
[2021-08-10 07:06] LABS: LYMPHOCYTES # (AUTO) 0.9 X10'3 (1.1-4.8); MEAN PLATELET VOLUME 8.1 FL (7.4-10.4); RED CELL DISTRIBUTION WIDTH 13.5 % (11.5-14.5)
[2021-08-10 07:07] LABS: BASOPHILS # (AUTO) 0.1 X10'3 (0-0.2); BASOPHILS % (AUTO) 0.3 % (0-1); EOSINOPHILS # (AUTO) 0.3 X10'3 (0-0.9); EOSINOPHILS % (AUTO) 1.3 % (0-6); HEMATOCRIT 30.8 % (42.0-52.0); LYMPHOCYTES % (AUTO) 4.6 % (21-51); MEAN CORPUSCULAR HEMOGLOBIN 29.6 PG (27.0-31.0); MEAN CORPUSCULAR HGB CONC 32.4 g/dL (33.0-36.5); MEAN CORPUSCULAR VOLUME 91.3 FL (78-98); MONOCYTES # (AUTO) 1.2 X10'3 (0-0.9); NEUTROPHILS # (AUTO) 18.1 X10'3 (1.8-7.7); NEUTROPHILS % (AUTO) 87.8 % (42-75); PLATELET COUNT 377 X10'3 (140-440); RED BLOOD COUNT 3.37 X10'6 (4.70-6.10); WHITE BLOOD COUNT 20.6 X10'3 (4.5-11.0)
[2021-08-10 07:20] LABS: ALANINE AMINOTRANSFERASE 8 U/L (12-78); ALBUMIN 1.5 G/DL (3.4-5.0); ALBUMIN/GLOBULIN RATIO 0.3 (1.1-1.5); ALKALINE PHOSPHATASE 133 IU/L (46-116); ANION GAP 14 (8-16); ASPARTATE AMINO TRANSFERASE 15 U/L (10-37); BILIRUBIN,TOTAL 0.3 MG/DL (0.1-1.0); BLOOD UREA NITROGEN 11 MG/DL (7-18); BUN/CREATININE RATIO 13.3 (5.4-32.0); CALCIUM 8.2 MG/DL (8.5-10.1); CHLORIDE 108 MMOL/L (99-107); CREATININE 0.83 MG/DL (0.60-1.10); GLUCOSE 112 MG/DL (70-104); SODIUM 142 MMOL/L (135-145); TOTAL PROTEIN 6.5 G/DL (6.4-8.2); eGFR > 90 ML/MIN
[2021-08-10] MEDS: lactose-reduced food (Ensure High Protein) 237ml bottle PO SCH ×3 (07:30→18:01)
[2021-08-10] MEDS: K and/or MAG REPLACEMENT MC SCH ×2 (08:00→20:00)
[2021-08-10] MEDS: metroNIDAZOLE 500mg tablet PO SCH ×3 (08:49→23:07)
[2021-08-10] MEDS: lactobacillus rhamnosus 10,000 MMU CELLS/CAPSULE PO SCH ×2 (08:49→19:30)
[2021-08-10] MEDS: heparin, porcine 5000 units/ml vial SQ SCH ×2 (08:51→19:30)
[2021-08-10] MEDS: divalproex sodium 500mg tablet.DR PO SCH ×2 (08:52→17:13)
[2021-08-10] MEDS: nicotine 14mg patch - 24hr TD SCH (08:52)
[2021-08-10] MEDS: morphine 2 MG/ML inj. syringe IV PRN (08:53)
[2021-08-10] MEDS: cefepime 2g/NS 100ml ADVANTAGE 100 ML IV SCH ×2 (08:54→19:30)
[2021-08-10] MEDS: lisinopril 20mg tablet PO SCH (08:55)
[2021-08-10] MEDS ORDERED: VANCOMYCIN LEVEL IV ONE (09:30)
[2021-08-10] MEDS: VANCOmycin 1250MG/NS 250ml Bag 250 ML IV SCH ×2 (10:50→23:07)
[2021-08-10 11:00] VITALS: BP 166/100
[2021-08-10] MEDS: HYDROmorphone inj. 0.5 MG/0.5 ML DISP.SYRIN IV PRN ×2 (11:05→19:35)
[2021-08-10] MEDS ORDERED: iohexol 300mg/ml 100ml inj. ONE (12:12)
[2021-08-10 18:00] VITALS: BP 151/93
--- NOTE | 2021-08-10 18:12 | NUR ---
Problems reprioritized. Patient report given, questions answered & plan of care reviewed with IBRAHIMA Vigil and traveler avel Alcaraz RN.
[2021-08-10] MEDS: insulin Lispro (HumaLOG) vial - multi-dose SQ SCH (19:24)
[2021-08-10] MEDS: mineral oil/petrolatum, white cream 113gm jar TP SCH (20:00)
[2021-08-10] MEDS: insulin glargine (Lantus) pen - multi-dose SQ SCH (21:00)
[2021-08-10] MEDS: aripiprazole 5mg tablet PO SCH (23:07)
--- NOTE | 2021-08-10 23:13 | NUR ---
pt refused accu check
[2021-08-11] VITALS: BP 155/91
[2021-08-11] MEDS: HYDROmorphone inj. 0.5 MG/0.5 ML DISP.SYRIN IV PRN (02:59)
[2021-08-11] MEDS: HYDROcodone/acetaminophen 10/325mg tab PO PRN (05:03)
--- NOTE | 2021-08-11 05:38 | NUR ---
Per IBRAHIMA Sanders at report, the CT on record states without contrast. However, she had verified with off site radiologist that contrast was used. She states that they were supposed to write an addendum. As of yet, this has not been written.
--- NOTE | 2021-08-11 06:10 | NUR ---
Patient in room [facility] 344. I have received report from Yaritza ALEXANDRA with Crystal ALEXANDRA and had the opportunity to ask questions and assume patient care.
--- NOTE | 2021-08-11 06:21 | NUR ---
Problems reprioritized. Patient report given, questions answered & plan of care reviewed with IBRAHIMA Rojas.
[2021-08-11 06:33] LABS: MAGNESIUM 1.9 MG/DL (1.5-2.4)
[2021-08-11] MEDS: lactose-reduced food (Ensure High Protein) 237ml bottle PO SCH ×2 (07:30→17:51)
[2021-08-11 08:00] VITALS: BP 137/97
[2021-08-11] MEDS: K and/or MAG REPLACEMENT MC SCH ×2 (08:00→20:00)
[2021-08-11] MEDS: lisinopril 20mg tablet PO SCH (08:28)
[2021-08-11] MEDS: metroNIDAZOLE 500mg tablet PO SCH ×3 (08:28→20:56)
[2021-08-11] MEDS: nicotine 14mg patch - 24hr TD SCH (08:29)
[2021-08-11] MEDS: heparin, porcine 5000 units/ml vial SQ SCH ×2 (08:29→19:57)
[2021-08-11] MEDS: lactobacillus rhamnosus 10,000 MMU CELLS/CAPSULE PO SCH ×2 (08:29→19:58)
[2021-08-11] MEDS: divalproex sodium 500mg tablet.DR PO SCH ×2 (08:29→17:17)
[2021-08-11] MEDS: mineral oil/petrolatum, white cream 113gm jar TP SCH ×2 (08:30→20:05)
[2021-08-11] MEDS: cefepime 2g/NS 100ml ADVANTAGE 100 ML IV SCH ×2 (08:30→16:56)
[2021-08-11] MEDS: VANCOmycin 1250MG/NS 250ml Bag 250 ML IV SCH (10:40)
[2021-08-11 11:00] VITALS: BP 153/99
[2021-08-11 11:01] LABS: EOSINOPHILS # (AUTO) 0.2 X10'3 (0-0.9); HEMOGLOBIN 9.8 g/dl (14.0-17.9)
[2021-08-11 11:02] LABS: BASOPHILS % (AUTO) 0.2 % (0-1); EOSINOPHILS % (AUTO) 1.2 % (0-6); HEMATOCRIT 29.8 % (42.0-52.0); LYMPHOCYTES # (AUTO) 1.2 X10'3 (1.1-4.8); LYMPHOCYTES % (AUTO) 6.6 % (21-51); MEAN CORPUSCULAR HEMOGLOBIN 30.1 PG (27.0-31.0); MEAN CORPUSCULAR HGB CONC 32.8 g/dL (33.0-36.5); MEAN CORPUSCULAR VOLUME 91.6 FL (78-98); MEAN PLATELET VOLUME 9.5 FL (7.4-10.4); MONOCYTES # (AUTO) 1.3 X10'3 (0-0.9); MONOCYTES % (AUTO) 7.5 % (2-12); NEUTROPHILS % (AUTO) 84.5 % (42-75); PLATELET COUNT 410 X10'3 (140-440); RED BLOOD COUNT 3.25 X10'6 (4.70-6.10); RED CELL DISTRIBUTION WIDTH 13.6 % (11.5-14.5); WHITE BLOOD COUNT 17.8 X10'3 (4.5-11.0)
[2021-08-11 11:03] LABS: ALANINE AMINOTRANSFERASE 14 U/L (12-78); ALBUMIN 1.5 G/DL (3.4-5.0); ALBUMIN/GLOBULIN RATIO 0.3 (1.1-1.5); ALKALINE PHOSPHATASE 124 IU/L (46-116); ANION GAP 12 (8-16); ASPARTATE AMINO TRANSFERASE 18 U/L (10-37); BILIRUBIN,TOTAL 0.2 MG/DL (0.1-1.0); BLOOD UREA NITROGEN 10 MG/DL (7-18); BUN/CREATININE RATIO 11.9 (5.4-32.0); CALCIUM 7.9 MG/DL (8.5-10.1); CHLORIDE 104 MMOL/L (99-107); CREATININE 0.84 MG/DL (0.60-1.10); GLUCOSE 147 MG/DL (70-104); POTASSIUM 3.8 MMOL/L (3.5-5.1); SODIUM 135 MMOL/L (135-145); TOTAL CARBON DIOXIDE 19.2 MMOL/L (24-32); TOTAL PROTEIN 6.3 G/DL (6.4-8.2); eGFR > 90 ML/MIN
--- NOTE | 2021-08-11 11:12 | NUR ---
Diabetes Consult: Pt already seen at bedside for DM education, see RD assessment on 08/06. Addendum: 08/11/21 at [address] Amended: Links added.
[2021-08-11] MEDS: insulin Lispro (HumaLOG) vial - multi-dose SQ SCH (13:34)
--- NOTE | 2021-08-11 13:42 | NUR ---
patient has not been receiving nutritional shake, message sent to notify
--- NOTE | 2021-08-11 17:40 | NUR ---
Student documentation: I have reviewed and agree with all interventions, assessments performed and documented by Apolonia Howe Student.
--- NOTE | 2021-08-11 17:56 | NUR ---
PAGER ID: [phone] MESSAGE: Juan Dunn [id number] - Pharmacy states there is no Vanco PO equivalence to the IV dose. IV meds will just have to restart in the AM. Picc nurse paged for the AM IV procedure. Thank you. Crystal Guerin [phone]
--- NOTE | 2021-08-11 18:00 | NUR ---
Problems reprioritized. Patient report given TO LETICIA alexandra WITH SONIYA ALEXANDRA, questions answered & plan of care reviewed with .
--- NOTE | 2021-08-11 18:11 | NUR ---
Problems reprioritized. Patient report given, questions answered & plan of care reviewed with Teo ALEXANDRA.
[2021-08-11] MEDS: oxyCODONE/APAP 10/325mg tablet PO PRN (18:47)
[2021-08-11] MEDS: linezolid 600mg tablet PO SCH (19:57)
[2021-08-11 20:00] VITALS: BP 166/102
[2021-08-11] MEDS ORDERED: cefpodoxime proxetil 100mg tablet PO ONE (20:00)
[2021-08-11] MEDS: aripiprazole 5mg tablet PO SCH (20:56)
[2021-08-11] MEDS: insulin glargine (Lantus) pen - multi-dose SQ SCH (20:58)
[2021-08-12] VITALS: BP 156/91
[2021-08-12] MEDS: oxyCODONE/APAP 10/325mg tablet PO PRN ×3 (01:20→18:50)
--- NOTE | 2021-08-12 06:00 | NUR ---
Patient in room [facility] 344. I have received report from Charge Nurse Dayanara ALEXANDRA and had the opportunity to ask questions and assume patient care.
--- NOTE | 2021-08-12 06:08 | NUR ---
Patient in room [facility] 344. I have received report from crystal ALEXANDRA with david ALEXANDRA and had the opportunity to ask questions and assume patient care.
--- NOTE | 2021-08-12 06:16 | NUR ---
Problems reprioritized. Patient report given, questions answered & plan of care reviewed with CISCO. Addendum: 08/12/21 at 0616 by Federico Varner RN Amended: Links added.
[2021-08-12 06:48] LABS: BASOPHILS # (AUTO) 0.1 X10'3 (0-0.2); BASOPHILS % (AUTO) 0.6 % (0-1); EOSINOPHILS # (AUTO) 0.2 X10'3 (0-0.9); EOSINOPHILS % (AUTO) 1.4 % (0-6); HEMATOCRIT 29.6 % (42.0-52.0); HEMOGLOBIN 9.9 g/dl (14.0-17.9); LYMPHOCYTES # (AUTO) 1.6 X10'3 (1.1-4.8); MEAN CORPUSCULAR HEMOGLOBIN 30.3 PG (27.0-31.0); MEAN CORPUSCULAR HGB CONC 33.5 g/dL (33.0-36.5); MEAN CORPUSCULAR VOLUME 90.3 FL (78-98); MEAN PLATELET VOLUME 7.9 FL (7.4-10.4); MONOCYTES # (AUTO) 1.6 X10'3 (0-0.9); MONOCYTES % (AUTO) 9.1 % (2-12); NEUTROPHILS % (AUTO) 79.9 % (42-75); PLATELET COUNT 399 X10'3 (140-440); RED BLOOD COUNT 3.29 X10'6 (4.70-6.10); RED CELL DISTRIBUTION WIDTH 13.6 % (11.5-14.5); WHITE BLOOD COUNT 17.5 X10'3 (4.5-11.0)
[2021-08-12 07:28] LABS: ALANINE AMINOTRANSFERASE 8 U/L (12-78); ALBUMIN 1.4 G/DL (3.4-5.0); ALBUMIN/GLOBULIN RATIO 0.3 (1.1-1.5); ALKALINE PHOSPHATASE 124 IU/L (46-116); ANION GAP 10 (8-16); ASPARTATE AMINO TRANSFERASE 15 U/L (10-37); BILIRUBIN,TOTAL 0.2 MG/DL (0.1-1.0); BLOOD UREA NITROGEN 10 MG/DL (7-18); BUN/CREATININE RATIO 11.9 (5.4-32.0); CALCIUM 8.3 MG/DL (8.5-10.1); CHLORIDE 107 MMOL/L (99-107); CREATININE 0.84 MG/DL (0.60-1.10); GLUCOSE 149 MG/DL (70-104); MAGNESIUM 2.1 MG/DL (1.5-2.4); SODIUM 138 MMOL/L (135-145); TOTAL CARBON DIOXIDE 20.9 MMOL/L (24-32); TOTAL PROTEIN 6.4 G/DL (6.4-8.2); eGFR > 90 ML/MIN
[2021-08-12] MEDS: lactose-reduced food (Ensure High Protein) 237ml bottle PO SCH ×2 (07:30→22:16)
[2021-08-12] MEDS: K and/or MAG REPLACEMENT MC SCH ×2 (08:00→19:55)
[2021-08-12 08:03] VITALS: BP 157/96
[2021-08-12] MEDS: lactobacillus rhamnosus 10,000 MMU CELLS/CAPSULE PO SCH ×2 (08:11→19:45)
[2021-08-12] MEDS: lisinopril 20mg tablet PO SCH (08:12)
[2021-08-12] MEDS: divalproex sodium 500mg tablet.DR PO SCH ×2 (08:12→17:24)
[2021-08-12] MEDS: linezolid 600mg tablet PO SCH ×2 (08:12→19:45)
--- NOTE | 2021-08-12 08:13 | NUR ---
Unable to place PIV for patient. Patient is IV drug user. Many nurses have attempted many times without success. PICC line nurse has been paged twice this morning for placement. CT is aware that patient doesn't have an IV currently.
[2021-08-12] MEDS: heparin, porcine 5000 units/ml vial SQ SCH ×2 (08:14→19:46)
[2021-08-12] MEDS: nicotine 14mg patch - 24hr TD SCH (08:14)
[2021-08-12] MEDS: metroNIDAZOLE 500mg tablet PO SCH ×3 (08:14→21:40)
[2021-08-12] MEDS: mineral oil/petrolatum, white cream 113gm jar TP SCH ×2 (08:28→19:46)
[2021-08-12] MEDS: normal saline 1000ml 1,000 ML IV SCH (11:10)
[2021-08-12 11:27] VITALS: BP 156/99
[2021-08-12] MEDS ORDERED: iohexol 350MG/ML 100ml bottle IV ONE (11:30)
[2021-08-12] MEDS ORDERED: iohexol 350 MG/ML 50ML vial IV ONE (11:30)
--- NOTE | 2021-08-12 12:44 | NUR ---
ASSUMED CARE AGREE WITH PRIMARY NURSE'S ASSESSMENT
--- NOTE | 2021-08-12 15:28 | NUR ---
Zyvox Consult: Pt started on zyvox per EMR. Pt currently NPO possibly to OR per RN. Pt seen by RD for written/verbal zyvox ed w/ RD contact information provided. Pt agitated w/ NPO status, would not focus, refused verbal zyvox ed, and told this RD "you don't know anything" regarding nutrition/CHO's. Written zyvox ed w/ RD contact information left at bedside. Addendum: 08/12/21 at [address] Amended: Links added.
[2021-08-12 18:00] VITALS: BP 160/103
--- NOTE | 2021-08-12 19:00 | NUR ---
Patient in room [facility] 344. I have received report from Dayanara ALEXANDRA and had the opportunity to ask questions and assume patient care.
[2021-08-12] MEDS: insulin Lispro (HumaLOG) vial - multi-dose SQ SCH (19:42)
[2021-08-12] MEDS: insulin glargine (Lantus) pen - multi-dose SQ SCH (21:00)
[2021-08-12] MEDS: aripiprazole 5mg tablet PO SCH (21:40)
--- NOTE | 2021-08-12 22:17 | NUR ---
Patient states that the ensure did not come up on dinner tray.
[2021-08-13] VITALS: BP 154/103
[2021-08-13] MEDS: oxyCODONE/APAP 10/325mg tablet PO PRN ×3 (03:18→19:19)
--- NOTE | 2021-08-13 06:12 | NUR ---
Problems reprioritized. Patient report given, questions answered & plan of care reviewed with Sarah ALEXANDRA.
--- NOTE | 2021-08-13 06:22 | NUR ---
Patient in room [facility] 344. I have received report from IBRAHIMA Delgado and had the opportunity to ask questions and assume patient care.
[2021-08-13 06:57] LABS: BASOPHILS # (AUTO) 0.1 X10'3 (0-0.2); BASOPHILS % (AUTO) 0.7 % (0-1); EOSINOPHILS # (AUTO) 0.3 X10'3 (0-0.9); EOSINOPHILS % (AUTO) 2.2 % (0-6); HEMATOCRIT 29.2 % (42.0-52.0); HEMOGLOBIN 9.7 g/dl (14.0-17.9); LYMPHOCYTES # (AUTO) 1.4 X10'3 (1.1-4.8); LYMPHOCYTES % (AUTO) 10.2 % (21-51); MEAN CORPUSCULAR HEMOGLOBIN 29.8 PG (27.0-31.0); MEAN CORPUSCULAR HGB CONC 33.3 g/dL (33.0-36.5); MEAN CORPUSCULAR VOLUME 89.4 FL (78-98); MEAN PLATELET VOLUME 7.4 FL (7.4-10.4); MONOCYTES # (AUTO) 1.3 X10'3 (0-0.9); MONOCYTES % (AUTO) 9.4 % (2-12); NEUTROPHILS # (AUTO) 10.7 X10'3 (1.8-7.7); NEUTROPHILS % (AUTO) 77.5 % (42-75); PLATELET COUNT 413 X10'3 (140-440); RED BLOOD COUNT 3.27 X10'6 (4.70-6.10); RED CELL DISTRIBUTION WIDTH 13.4 % (11.5-14.5); WHITE BLOOD COUNT 13.8 X10'3 (4.5-11.0)
[2021-08-13 07:00] VITALS: BP 145/106
[2021-08-13 07:17] LABS: ALANINE AMINOTRANSFERASE 7 U/L (12-78); ALBUMIN 1.4 G/DL (3.4-5.0); ALBUMIN/GLOBULIN RATIO 0.3 (1.1-1.5); ALKALINE PHOSPHATASE 141 IU/L (46-116); ANION GAP 6 (8-16); ASPARTATE AMINO TRANSFERASE 11 U/L (10-37); BILIRUBIN,TOTAL 0.2 MG/DL (0.1-1.0); BLOOD UREA NITROGEN 9 MG/DL (7-18); BUN/CREATININE RATIO 9.4 (5.4-32.0); CALCIUM 7.9 MG/DL (8.5-10.1); CHLORIDE 104 MMOL/L (99-107); CREATININE 0.96 MG/DL (0.60-1.10); GLUCOSE 197 MG/DL (70-104); POTASSIUM 3.9 MMOL/L (3.5-5.1); SODIUM 135 MMOL/L (135-145); TOTAL CARBON DIOXIDE 24.7 MMOL/L (24-32); TOTAL PROTEIN 6.4 G/DL (6.4-8.2); eGFR > 90 ML/MIN
[2021-08-13] MEDS: metroNIDAZOLE 500mg tablet PO SCH ×3 (07:28→21:17)
[2021-08-13] MEDS: heparin, porcine 5000 units/ml vial SQ SCH ×2 (07:28→20:37)
[2021-08-13] MEDS: lactobacillus rhamnosus 10,000 MMU CELLS/CAPSULE PO SCH ×2 (07:29→20:36)
[2021-08-13] MEDS: lisinopril 20mg tablet PO SCH (07:29)
[2021-08-13] MEDS: nicotine 14mg patch - 24hr TD SCH (07:29)
[2021-08-13] MEDS: linezolid 600mg tablet PO SCH ×2 (07:29→20:36)
[2021-08-13] MEDS: lactose-reduced food (Ensure High Protein) 237ml bottle PO SCH ×2 (07:30→17:30)
[2021-08-13] MEDS: K and/or MAG REPLACEMENT MC SCH ×2 (08:00→20:00)
[2021-08-13] MEDS: divalproex sodium 500mg tablet.DR PO SCH ×2 (08:29→18:12)
[2021-08-13] MEDS: insulin Lispro (HumaLOG) vial - multi-dose SQ SCH ×2 (08:32→19:31)
[2021-08-13 11:00] VITALS: BP 148/91
--- NOTE | 2021-08-13 13:35 | NUR ---
Dr Mensah here to eval pt for possible amputation. He wishes to wait until Dr Thorne has a chance to increase blood flow to facilitate healing as this is a newer wound with only 8 days of IV antibiotics.
--- NOTE | 2021-08-13 14:00 | NUR ---
Reassessment: Pt w/ variable PO intake, avg 34% x 9 meals not meeting needs. Noted pt has not been receiving ONS, discussed w/ dietary to send ONS per rx. Pt may be getting R foot amputated per EMR. LBM 08/10. Will continue to monitor for increased protein and energy needs if pt undergoes surgery. Recommendations: 1) Continue CHO controlled diet 2) Soft to chew food with chop meat per pt request d/t difficulty chewing 3) Ensure High Protein BIDBD 4) [place] food preferences: strawberry yogurt WB, diet Pepsi BIDLD, ice cream WS 5) Routine bowel care 6) Scaled weight this admit; weekly scaled weights thereafter Addendum: 08/13/21 at [address] Amended: Links added.
[2021-08-13] MEDS: mineral oil/petrolatum, white cream 113gm jar TP SCH ×2 (16:07→20:00)
--- NOTE | 2021-08-13 18:29 | NUR ---
Problems reprioritized. Patient report given, questions answered & plan of care reviewed with IBRAHIMA Viramontes.
--- NOTE | 2021-08-13 18:30 | NUR ---
Patient in room [facility] 344. I have received report from ROMEO ALEXANDRA and had the opportunity to ask questions and assume patient care.
[2021-08-13 18:53] VITALS: BP 147/83
[2021-08-13] MEDS: insulin glargine (Lantus) pen - multi-dose SQ SCH (21:00)
[2021-08-13] MEDS: aripiprazole 5mg tablet PO SCH (21:17)
[2021-08-14] VITALS (7 sets, daily range): BP systolic 131–165; BP diastolic 60–102
[2021-08-14] MEDS: oxyCODONE/APAP 10/325mg tablet PO PRN ×3 (05:53→20:41)
[2021-08-14 06:28] LABS: BASOPHILS # (AUTO) 0.1 X10'3 (0-0.2); BASOPHILS % (AUTO) 0.5 % (0-1); EOSINOPHILS # (AUTO) 0.3 X10'3 (0-0.9); EOSINOPHILS % (AUTO) 2.1 % (0-6); HEMATOCRIT 32.5 % (42.0-52.0); HEMOGLOBIN 10.8 g/dl (14.0-17.9); LYMPHOCYTES # (AUTO) 1.6 X10'3 (1.1-4.8); LYMPHOCYTES % (AUTO) 10.5 % (21-51); MEAN CORPUSCULAR HEMOGLOBIN 29.9 PG (27.0-31.0); MEAN CORPUSCULAR HGB CONC 33.1 g/dL (33.0-36.5); MEAN CORPUSCULAR VOLUME 90.3 FL (78-98); MEAN PLATELET VOLUME 8.2 FL (7.4-10.4); MONOCYTES # (AUTO) 1.3 X10'3 (0-0.9); MONOCYTES % (AUTO) 8.5 % (2-12); NEUTROPHILS # (AUTO) 11.9 X10'3 (1.8-7.7); NEUTROPHILS % (AUTO) 78.4 % (42-75); PLATELET COUNT 510 X10'3 (140-440); RED CELL DISTRIBUTION WIDTH 13.5 % (11.5-14.5); WHITE BLOOD COUNT 15.2 X10'3 (4.5-11.0)
--- NOTE | 2021-08-14 06:30 | NUR ---
Problems reprioritized. Patient report given, questions answered & plan of care reviewed with BIJAN ALEXANDRA.
[2021-08-14 06:42] LABS: ALANINE AMINOTRANSFERASE 7 U/L (12-78); ALBUMIN 1.6 G/DL (3.4-5.0); ALBUMIN/GLOBULIN RATIO 0.3 (1.1-1.5); ALKALINE PHOSPHATASE 125 IU/L (46-116); ANION GAP 10 (8-16); ASPARTATE AMINO TRANSFERASE 12 U/L (10-37); BILIRUBIN,TOTAL 0.2 MG/DL (0.1-1.0); BLOOD UREA NITROGEN 9 MG/DL (7-18); BUN/CREATININE RATIO 10.6 (5.4-32.0); CALCIUM 8.5 MG/DL (8.5-10.1); CHLORIDE 107 MMOL/L (99-107); CREATININE 0.85 MG/DL (0.60-1.10); GLUCOSE 163 MG/DL (70-104); POTASSIUM 4.1 MMOL/L (3.5-5.1); SODIUM 142 MMOL/L (135-145); TOTAL CARBON DIOXIDE 25.5 MMOL/L (24-32); TOTAL PROTEIN 6.8 G/DL (6.4-8.2); eGFR > 90 ML/MIN
[2021-08-14] MEDS: lactose-reduced food (Ensure High Protein) 237ml bottle PO SCH ×2 (07:30→17:49)
[2021-08-14] MEDS: mineral oil/petrolatum, white cream 113gm jar TP SCH ×2 (08:00→20:48)
[2021-08-14] MEDS: K and/or MAG REPLACEMENT MC SCH ×2 (08:00→20:00)
[2021-08-14] MEDS: nicotine 14mg patch - 24hr TD SCH ×2 (08:50→09:07)
[2021-08-14] MEDS: metroNIDAZOLE 500mg tablet PO SCH ×3 (08:52→20:41)
[2021-08-14] MEDS: lactobacillus rhamnosus 10,000 MMU CELLS/CAPSULE PO SCH ×2 (08:52→20:41)
[2021-08-14] MEDS: lisinopril 20mg tablet PO SCH (08:53)
[2021-08-14] MEDS: linezolid 600mg tablet PO SCH ×2 (08:55→20:41)
[2021-08-14] MEDS: heparin, porcine 5000 units/ml vial SQ SCH ×2 (08:58→20:44)
[2021-08-14] MEDS: divalproex sodium 500mg tablet.DR PO SCH ×2 (09:08→17:40)
[2021-08-14] MEDS: normal saline 1000ml 1,000 ML IV SCH (09:36)
[2021-08-14] MEDS: insulin Lispro (HumaLOG) vial - multi-dose SQ SCH ×2 (10:38→13:54)
--- NOTE | 2021-08-14 14:43 | NUR ---
PAGER ID: [phone] MESSAGE: [phone] Giuseppe Dunn: MRI is questioning this MRI order. would you still like it completed? thanks, michelle [phone]
--- NOTE | 2021-08-14 17:03 | NUR ---
attempted phone call to Dr. Mensah to clarify MRI order. No answer. Message left. Addendum: 08/14/21 at 1826 by Mary Breaux RN Dr. Mensah returned phone call and would like to proceed with the MRI. Bubba cash RN aware, multimedia technician notified.
--- NOTE | 2021-08-14 18:25 | NUR ---
Problems reprioritized. Patient report given, questions answered & plan of care reviewed with IBRAHIMA Viramontes.
--- NOTE | 2021-08-14 18:30 | NUR ---
Patient in room [facility] 344. I have received report from BIJAN ALEXANDRA and had the opportunity to ask questions and assume patient care.
[2021-08-14] MEDS: aripiprazole 5mg tablet PO SCH (20:41)
[2021-08-14] MEDS: insulin glargine (Lantus) pen - multi-dose SQ SCH (21:00)
[2021-08-15] VITALS: BP 158/99
[2021-08-15] MEDS: oxyCODONE/APAP 10/325mg tablet PO PRN ×3 (05:35→20:22)
[2021-08-15 06:25] LABS: BASOPHILS # (AUTO) 0.1 X10'3 (0-0.2); BASOPHILS % (AUTO) 0.6 % (0-1); EOSINOPHILS # (AUTO) 0.3 X10'3 (0-0.9); HEMATOCRIT 34.7 % (42.0-52.0); HEMOGLOBIN 11.5 g/dl (14.0-17.9); LYMPHOCYTES # (AUTO) 1.4 X10'3 (1.1-4.8); LYMPHOCYTES % (AUTO) 10.3 % (21-51); MEAN CORPUSCULAR HEMOGLOBIN 30.2 PG (27.0-31.0); MEAN CORPUSCULAR HGB CONC 33.3 g/dL (33.0-36.5); MEAN CORPUSCULAR VOLUME 90.8 FL (78-98); MEAN PLATELET VOLUME 7.9 FL (7.4-10.4); MONOCYTES % (AUTO) 7.7 % (2-12); NEUTROPHILS # (AUTO) 10.5 X10'3 (1.8-7.7); NEUTROPHILS % (AUTO) 79.4 % (42-75); PLATELET COUNT 539 X10'3 (140-440); RED BLOOD COUNT 3.82 X10'6 (4.70-6.10); RED CELL DISTRIBUTION WIDTH 13.6 % (11.5-14.5); WHITE BLOOD COUNT 13.2 X10'3 (4.5-11.0)
--- NOTE | 2021-08-15 06:30 | NUR ---
Problems reprioritized. Patient report given, questions answered & plan of care reviewed with BIJAN ALEXANDRA.
[2021-08-15 06:44] LABS: ALANINE AMINOTRANSFERASE 6 U/L (12-78); ALBUMIN 1.6 G/DL (3.4-5.0); ALBUMIN/GLOBULIN RATIO 0.3 (1.1-1.5); ALKALINE PHOSPHATASE 156 IU/L (46-116); ANION GAP 9 (8-16); ASPARTATE AMINO TRANSFERASE 14 U/L (10-37); BILIRUBIN,TOTAL 0.2 MG/DL (0.1-1.0); BLOOD UREA NITROGEN 9 MG/DL (7-18); BUN/CREATININE RATIO 9.9 (5.4-32.0); CALCIUM 8.4 MG/DL (8.5-10.1); CHLORIDE 106 MMOL/L (99-107); CREATININE 0.91 MG/DL (0.60-1.10); GLUCOSE 200 MG/DL (70-104); POTASSIUM 4.3 MMOL/L (3.5-5.1); SODIUM 142 MMOL/L (135-145); TOTAL CARBON DIOXIDE 26.9 MMOL/L (24-32); TOTAL PROTEIN 7.1 G/DL (6.4-8.2); eGFR > 90 ML/MIN
[2021-08-15 07:00] VITALS: BP 151/94
[2021-08-15] MEDS: lactose-reduced food (Ensure High Protein) 237ml bottle PO SCH ×2 (07:30→17:47)
[2021-08-15] MEDS: lactobacillus rhamnosus 10,000 MMU CELLS/CAPSULE PO SCH ×2 (07:31→21:01)
[2021-08-15] MEDS: metroNIDAZOLE 500mg tablet PO SCH ×3 (07:32→21:01)
[2021-08-15] MEDS: linezolid 600mg tablet PO SCH ×2 (07:32→21:01)
[2021-08-15] MEDS: lisinopril 20mg tablet PO SCH (07:33)
[2021-08-15] MEDS: heparin, porcine 5000 units/ml vial SQ SCH ×2 (07:35→21:02)
[2021-08-15] MEDS: nicotine 14mg patch - 24hr TD SCH (07:36)
[2021-08-15] MEDS: divalproex sodium 500mg tablet.DR PO SCH ×2 (07:41→17:13)
[2021-08-15] MEDS: mineral oil/petrolatum, white cream 113gm jar TP SCH ×2 (07:41→21:02)
[2021-08-15] MEDS: K and/or MAG REPLACEMENT MC SCH ×2 (08:00→20:00)
[2021-08-15] MEDS: insulin Lispro (HumaLOG) vial - multi-dose SQ SCH ×2 (09:09→19:38)
[2021-08-15 11:30] VITALS: BP 136/89
--- NOTE | 2021-08-15 11:33 | NUR ---
patient in wheelchair. waiting to be taken down to MRI.
--- NOTE | 2021-08-15 14:00 | NUR ---
telephone call to Dr. Mensah's office to notify him that MRI has been completed, there is no report on this yet just imagining
[2021-08-15 16:09] VITALS: BP 153/97
[2021-08-15] MEDS ORDERED: GADOTERATE MEGLUMINE 7.5 MMOL/15 ML VIAL IV ONE (16:54)
--- NOTE | 2021-08-15 18:18 | NUR ---
Problems reprioritized. Patient report given, questions answered & plan of care reviewed with IBRAHIMA Viramontes.
--- NOTE | 2021-08-15 18:30 | NUR ---
Patient in room [facility] 344. I have received report from BIJAN ALEXANDRA and had the opportunity to ask questions and assume patient care.
[2021-08-15 20:00] VITALS: BP 151/92
[2021-08-15] MEDS: aripiprazole 5mg tablet PO SCH (21:01)
[2021-08-15] MEDS: VANCOmycin 1250MG/NS 250ml Bag 250 ML IV SCH (22:53)
[2021-08-15] MEDS: insulin glargine (Lantus) pen - multi-dose SQ SCH (23:03)
[2021-08-16] VITALS: BP 144/96
[2021-08-16] MEDS: ampicillin/sulbac 3gm/NS 100ml 100 ML IV SCH ×4 (02:40→21:14)
[2021-08-16] MEDS: oxyCODONE/APAP 10/325mg tablet PO PRN ×3 (02:50→21:15)
--- NOTE | 2021-08-16 06:30 | NUR ---
Problems reprioritized. Patient report given, questions answered & plan of care reviewed with LAMINE ALEXANDRA.
--- NOTE | 2021-08-16 06:45 | NUR ---
Patient in room [facility] 344B. I have received report from FERNANDO KING RN and had the opportunity to ask questions and assume patient care.
[2021-08-16 07:00] VITALS: BP 158/98
[2021-08-16] MEDS: lactose-reduced food (Ensure High Protein) 237ml bottle PO SCH ×2 (07:30→18:08)
[2021-08-16 07:31] LABS: BASOPHILS % (AUTO) 0.5 % (0-1); EOSINOPHILS # (AUTO) 0.2 X10'3 (0-0.9); EOSINOPHILS % (AUTO) 1.8 % (0-6); HEMATOCRIT 33.5 % (42.0-52.0); HEMOGLOBIN 11.2 g/dl (14.0-17.9); LYMPHOCYTES # (AUTO) 1.3 X10'3 (1.1-4.8); LYMPHOCYTES % (AUTO) 12.6 % (21-51); MEAN CORPUSCULAR HEMOGLOBIN 30.4 PG (27.0-31.0); MEAN CORPUSCULAR HGB CONC 33.3 g/dL (33.0-36.5); MEAN CORPUSCULAR VOLUME 91.4 FL (78-98); MEAN PLATELET VOLUME 7.2 FL (7.4-10.4); MONOCYTES # (AUTO) 0.9 X10'3 (0-0.9); NEUTROPHILS % (AUTO) 76.1 % (42-75); PLATELET COUNT 509 X10'3 (140-440); RED BLOOD COUNT 3.66 X10'6 (4.70-6.10); RED CELL DISTRIBUTION WIDTH 13.4 % (11.5-14.5); WHITE BLOOD COUNT 10.5 X10'3 (4.5-11.0)
[2021-08-16 07:41] LABS: ALANINE AMINOTRANSFERASE 9 U/L (12-78); ALBUMIN 1.5 G/DL (3.4-5.0); ALBUMIN/GLOBULIN RATIO 0.3 (1.1-1.5); ALKALINE PHOSPHATASE 123 IU/L (46-116); ANION GAP 5 (8-16); ASPARTATE AMINO TRANSFERASE 12 U/L (10-37); BILIRUBIN,TOTAL 0.2 MG/DL (0.1-1.0); BLOOD UREA NITROGEN 9 MG/DL (7-18); BUN/CREATININE RATIO 10.7 (5.4-32.0); CALCIUM 8.4 MG/DL (8.5-10.1); CHLORIDE 106 MMOL/L (99-107); CREATININE 0.84 MG/DL (0.60-1.10); GLUCOSE 195 MG/DL (70-104); POTASSIUM 4.3 MMOL/L (3.5-5.1); SODIUM 140 MMOL/L (135-145); TOTAL CARBON DIOXIDE 28.7 MMOL/L (24-32); TOTAL PROTEIN 6.6 G/DL (6.4-8.2); eGFR > 90 ML/MIN
[2021-08-16] MEDS: K and/or MAG REPLACEMENT MC SCH ×2 (08:00→20:00)
[2021-08-16 11:00] VITALS: BP 156/95
[2021-08-16] MEDS: normal saline 1000ml 1,000 ML IV SCH (11:10)
[2021-08-16] MEDS: lactobacillus rhamnosus 10,000 MMU CELLS/CAPSULE PO SCH ×2 (12:05→21:14)
[2021-08-16] MEDS: lisinopril 20mg tablet PO SCH (12:05)
[2021-08-16] MEDS: divalproex sodium 500mg tablet.DR PO SCH ×2 (12:05→18:03)
[2021-08-16] MEDS: heparin, porcine 5000 units/ml vial SQ SCH ×2 (12:06→21:21)
[2021-08-16] MEDS: mineral oil/petrolatum, white cream 113gm jar TP SCH ×2 (12:08→20:00)
[2021-08-16] MEDS: nicotine 14mg patch - 24hr TD SCH (12:09)
[2021-08-16] MEDS: insulin Lispro (HumaLOG) vial - multi-dose SQ SCH (14:43)
[2021-08-16] MEDS: VANCOmycin 1250MG/NS 250ml Bag 250 ML IV SCH ×2 (14:51→22:14)
--- NOTE | 2021-08-16 18:45 | NUR ---
Problems reprioritized. Patient report given, questions answered & plan of care reviewed with IBRAHIMA TAYLOR.
[2021-08-16 20:00] VITALS: BP 147/88
[2021-08-16] MEDS: insulin glargine (Lantus) pen - multi-dose SQ SCH (21:00)
[2021-08-16] MEDS: aripiprazole 5mg tablet PO SCH (21:14)
[2021-08-17] VITALS: BP 162/83
[2021-08-17] MEDS: ampicillin/sulbac 3gm/NS 100ml 100 ML IV SCH ×4 (02:43→20:33)
[2021-08-17] MEDS: oxyCODONE/APAP 10/325mg tablet PO PRN ×3 (04:34→20:32)
--- NOTE | 2021-08-17 06:31 | NUR ---
Problems reprioritized. Patient report given, questions answered & plan of care reviewed with Shraddha ALEXANDRA. Addendum: 08/17/21 at 0631 by Sharla Jolly RN Amended: Links added.
[2021-08-17 07:00] VITALS: BP 153/95
[2021-08-17] MEDS: lisinopril 20mg tablet PO SCH (07:54)
[2021-08-17] MEDS: lactobacillus rhamnosus 10,000 MMU CELLS/CAPSULE PO SCH ×2 (07:54→20:31)
[2021-08-17] MEDS: divalproex sodium 500mg tablet.DR PO SCH ×2 (07:54→17:52)
[2021-08-17] MEDS: heparin, porcine 5000 units/ml vial SQ SCH ×2 (07:55→20:31)
[2021-08-17] MEDS: nicotine 14mg patch - 24hr TD SCH (07:55)
[2021-08-17] MEDS: lactose-reduced food (Ensure High Protein) 237ml bottle PO SCH ×2 (07:58→17:52)
[2021-08-17] MEDS: mineral oil/petrolatum, white cream 113gm jar TP SCH ×2 (07:58→20:36)
[2021-08-17] MEDS: K and/or MAG REPLACEMENT MC SCH ×2 (08:00→20:00)
[2021-08-17] MEDS: insulin Lispro (HumaLOG) vial - multi-dose SQ SCH (09:21)
[2021-08-17] MEDS ORDERED: VANCOMYCIN LEVEL IV ONE (09:30)
[2021-08-17 11:00] VITALS: BP 131/88
[2021-08-17] MEDS: VANCOmycin 1250MG/NS 250ml Bag 250 ML IV SCH ×2 (11:16→22:28)
--- NOTE | 2021-08-17 11:16 | NUR ---
Blood drawn from the extended line IV as ware server were having hard time getting blood sample from him. Specimen sent to lab for [facility]
--- NOTE | 2021-08-17 12:21 | NUR ---
F/u 08/17: Pt PO 75-100% avg ensure high protein BIDBD and PO meals improving to 75-100% yesterday. Overall ~50% avg meals past 4 days given refusal of 4 meals and 50% prior PO intake partially meeting needs. LBM 08/15. Will continue to monitor PO trends and additional protein/kcal needs. Recommendations: 1) Continue CHO controlled diet; encourage PO 2) Soft to chew food with chop meat per pt request d/t difficulty chewing 3) Ensure High Protein BIDBD 4) [place] food preferences: strawberry yogurt WB, diet Pepsi BIDLD, ice cream WS 5) Routine bowel care 6) Scaled weight this admit; weekly scaled weights thereafter Addendum: 08/17/21 at [address] Amended: Links added.
--- NOTE | 2021-08-17 14:11 | NUR ---
Patient refused to take correctional dose of insulin at this time. Patient did not ate his lunch. I spoke to dietitian Anshul about patient request to increase his protein and less carbohydrate if we wants carbohydrate controlled diet
[2021-08-17 18:00] VITALS: BP 153/81
--- NOTE | 2021-08-17 18:34 | NUR ---
Problems reprioritized. Patient report given, questions answered & plan of care reviewed with Ami ALEXANDRA.
--- NOTE | 2021-08-17 18:41 | NUR ---
Patient in room [facility] 344. I have received report from MIGUELINA ALEXANDRA and had the opportunity to ask questions and assume patient care. Addendum: 08/17/21 at 1841 by Ami Borrego RN Amended: Links added.
[2021-08-17 19:00] VITALS: BP 153/81
[2021-08-17] MEDS: aripiprazole 5mg tablet PO SCH (20:32)
[2021-08-17] MEDS: insulin glargine (Lantus) pen - multi-dose SQ SCH (20:52)
[2021-08-18] VITALS: BP 140/88
[2021-08-18] MEDS: ampicillin/sulbac 3gm/NS 100ml 100 ML IV SCH ×2 (02:00→08:23)
[2021-08-18] MEDS: oxyCODONE/APAP 10/325mg tablet PO PRN ×2 (05:56→13:00)
--- NOTE | 2021-08-18 05:57 | NUR ---
pt c/o pain medicated with percocet for it.
[2021-08-18 06:00] VITALS: BP 170/102
--- NOTE | 2021-08-18 06:19 | NUR ---
Student documentation: I have reviewed and agree with all interventions, assessments performed and documented by DEJAN DANIELS RN STUDENT [facility].Problems reprioritized. Patient report given, questions answered & plan of care reviewed with ROLDAN ALEXANDRA. Addendum: 08/18/21 at 0621 by Ami Borrego RN Amended: Links added.
[2021-08-18] MEDS: lactose-reduced food (Ensure High Protein) 237ml bottle PO SCH (07:30)
[2021-08-18] MEDS: K and/or MAG REPLACEMENT MC SCH (08:00)
[2021-08-18] MEDS: lactobacillus rhamnosus 10,000 MMU CELLS/CAPSULE PO SCH (08:23)
[2021-08-18] MEDS: heparin, porcine 5000 units/ml vial SQ SCH (08:23)
[2021-08-18] MEDS: divalproex sodium 500mg tablet.DR PO SCH (08:23)
[2021-08-18] MEDS: lisinopril 20mg tablet PO SCH (08:24)
[2021-08-18] MEDS: nicotine 14mg patch - 24hr TD SCH (08:31)
[2021-08-18] MEDS: insulin Lispro (HumaLOG) vial - multi-dose SQ SCH (08:37)
[2021-08-18] MEDS: mineral oil/petrolatum, white cream 113gm jar TP SCH (08:40)
[2021-08-18] MEDS: VANCOmycin 1250MG/NS 250ml Bag 250 ML IV SCH (10:28)
[2021-08-18 11:00] VITALS: BP 165/101
[2021-08-18] MEDS: normal saline 1000ml 1,000 ML IV SCH (11:10)
--- NOTE | 2021-08-18 12:23 | NUR ---
Page Sent PAGER ID: [phone] MESSAGE: [phone] Shaun, pt bp was 165/101. thanks elba [phone]
--- NOTE | 2021-08-18 12:40 | NUR ---
PAGER ID: [phone] MESSAGE: Lorri-Surg [phone] Re: Shaun Case management has fruit or nut picker scheduled in 20 min for patient to go to [facility] today is that ok with you for us to discharge please call
--- NOTE | 2021-08-18 12:45 | NUR ---
pt will not receive insulin before leaving, lunch trays are late.
--- NOTE | 2021-08-18 13:17 | NUR ---
Problems reprioritized. Patient report given, questions answered & plan of care reviewed with José Luis Ba.
--- NOTE | 2021-08-18 13:18 | NUR ---
per José Luis at [facility] i was told to left the extended R upper arm IV in. IV is inact and was left for [facility]. pt belongings were gathered and report was given to [facility]. pt was transported by [facility] from [facility]. pt wound dressing were changed and pictures were documented in the chart.
== END 2021-08-18 13:24 | DRG 720 ==
LOC: ER 17:35 → UNDOADMIN 08-05 01:09 → ED HOLD 08-05 01:09 → SUR 3N 08-05 19:00
PROVIDERS: ADMIT Internal Medicine; ATTEND Family Medicine
PROC: BQ2R1ZZ Computerized Tomography (CT Scan) of Right Lower Extremity using Low Osmolar Contrast (ICD-10-PCS; principal; 2021-08-05)
PROC: B4201ZZ Computerized Tomography (CT Scan) of Abdominal Aorta using Low Osmolar Contrast (ICD-10-PCS; 2021-08-12)
PROC: B4241ZZ Computerized Tomography (CT Scan) of Superior Mesenteric Artery using Low Osmolar Contrast (ICD-10-PCS; 2021-08-12)
PROC: B4281ZZ Computerized Tomography (CT Scan) of Bilateral Renal Arteries using Low Osmolar Contrast (ICD-10-PCS; 2021-08-12)
PROC: B42C1ZZ Computerized Tomography (CT Scan) of Pelvic Arteries using Low Osmolar Contrast (ICD-10-PCS; 2021-08-12)
PROC: B42H1ZZ Computerized Tomography (CT Scan) of Bilateral Lower Extremity Arteries using Low Osmolar Contrast (ICD-10-PCS; 2021-08-12)
PROC: B4211ZZ Computerized Tomography (CT Scan) of Celiac Artery using Low Osmolar Contrast (ICD-10-PCS; 2021-08-12)
PROC: B42H1ZZ Computerized Tomography (CT Scan) of Bilateral Lower Extremity Arteries using Low Osmolar Contrast (ICD-10-PCS; 2021-08-12)
DX: A41.9 Sepsis, unspecified organism (principal); N17.9 Acute kidney failure, unspecified; E11.22 Type 2 diabetes mellitus with diabetic chronic kidney disease; L97.519 Non-pressure chronic ulcer of other part of right foot with unspecified severity; E11.51 Type 2 diabetes mellitus with diabetic peripheral angiopathy without gangrene; E11.621 Type 2 diabetes mellitus with foot ulcer; L03.115 Cellulitis of right lower limb; E11.65 Type 2 diabetes mellitus with hyperglycemia; E11.69 Type 2 diabetes mellitus with other specified complication; E78.5 Hyperlipidemia, unspecified; F12.90 Cannabis use, unspecified, uncomplicated; F32.9 Major depressive disorder, single episode, unspecified; F15.10 Other stimulant abuse, uncomplicated; F17.210 Nicotine dependence, cigarettes, uncomplicated; B95.62 Methicillin resistant Staphylococcus aureus infection as the cause of diseases classified elsewhere; B95.1 Streptococcus, group B, as the cause of diseases classified elsewhere; B95.2 Enterococcus as the cause of diseases classified elsewhere; B95.61 Methicillin susceptible Staphylococcus aureus infection as the cause of diseases classified elsewhere; I12.9 Hypertensive chronic kidney disease with stage 1 through stage 4 chronic kidney disease, or unspecified chronic kidney disease; M86.8X7 Other osteomyelitis, ankle and foot; N18.30 Chronic kidney disease, stage 3 unspecified; Z59.0 Homelessness; Z91.14 Patient's other noncompliance with medication regimen; Z91.19 Patient's noncompliance with other medical treatment and regimen; Z88.5 Allergy status to narcotic agent; Z88.8 Allergy status to other drugs, medicaments and biological substances; Z90.49 Acquired absence of other specified parts of digestive tract; Z56.0 Unemployment, unspecified; Z79.899 Other long term (current) drug therapy; Z71.51 Drug abuse counseling and surveillance of drug abuser; Z71.6 Tobacco abuse counseling
CPT/HCPCS: 36415; 73620; 73701; 73720; 75635; 76937; 80048; 80053; 80061; 80202; 81001; 82948; 83036; 83605; 83735; 85007; 85008; 85025; 85651; 86140; 87040; 87070; 87075; 87077; 87081; 87186; 93922; 93926; 96365; 96366; 96368; 97110; 97116; 97161; 97530; 99285; A9575; G0378; J0295; J0692; J1170; J1644; J1815; J2270; J2543; J3370; J3490; J7030; J7050; Q9967

== ENCOUNTER 2022-05-02 14:52 | Emergency (ER) | payer MEDICAID ==
[~2022-05-02] VITALS: Ht 167.6 cm; Wt 54.5 kg
[~2022-05-02 14:52] MED LIST changes: +ALOG25TA PO; -ARIP10TA15 PO; +ARIP5TAB14 PO; +ATOR40TA71 PO; -DEXT15LI PO; -GLIP10TA3 PO; +INSU100I31 SQ; -INSU100V11 SQ; -LANTUS SQ; +LISI10TA27 PO; -LISI2.5T14 PO; +METF-438 PO; -PRAZ1CAP5 PO; +ZIPR40CA2 PO
[2022-05-02] MEDS ORDERED: naloxone 2mg/2ml inj IV STA (15:02)
[2022-05-02] MEDS ORDERED: naloxone 2mg/2ml inj ONE (15:04)
[2022-05-02] MEDS ORDERED: normal saline 1000ML IV soln IVB ONE (15:15)
[2022-05-02 15:36] LABS: BASOPHILS % (AUTO) 0.6 % (0-1); EOSINOPHILS # (AUTO) 0.2 X10'3 (0-0.9); EOSINOPHILS % (AUTO) 3.8 % (0-6); HEMOGLOBIN 11.2 g/dl (14.0-17.9); LYMPHOCYTES # (AUTO) 1.4 X10'3 (1.1-4.8); LYMPHOCYTES % (AUTO) 31.2 % (21-51); MEAN CORPUSCULAR HEMOGLOBIN 29.4 PG (27.0-31.0); MEAN CORPUSCULAR HGB CONC 32.9 g/dL (33.0-36.5); MEAN CORPUSCULAR VOLUME 89.3 FL (78-98); MONOCYTES # (AUTO) 0.4 X10'3 (0-0.9); MONOCYTES % (AUTO) 8.8 % (2-12); NEUTROPHILS # (AUTO) 2.6 X10'3 (1.8-7.7); NEUTROPHILS % (AUTO) 55.6 % (42-75); PLATELET COUNT 242 X10'3 (140-440); RED CELL DISTRIBUTION WIDTH 13.9 % (11.5-14.5); WHITE BLOOD COUNT 4.6 X10'3 (4.5-11.0)
--- NOTE | 2022-05-02 15:42 | NUR ---
PT AIRWAY PATENT. EYES CLOSED, SLEEPING. EASY TO ROUSE
[2022-05-02 15:52] LABS: ALANINE AMINOTRANSFERASE 38 U/L (12-78); ALBUMIN 3.4 G/DL (3.4-5.0); ALBUMIN/GLOBULIN RATIO 0.8 (1.1-1.5); ALKALINE PHOSPHATASE 118 IU/L (46-116); ANION GAP 8 (8-16); ASPARTATE AMINO TRANSFERASE 35 U/L (10-37); BILIRUBIN,TOTAL 0.3 MG/DL (0.1-1.0); BLOOD UREA NITROGEN 24 MG/DL (7-18); BUN/CREATININE RATIO 18.8 (5.4-32.0); CALCIUM 8.4 MG/DL (8.5-10.1); CHLORIDE 107 MMOL/L (99-107); CREATININE 1.28 MG/DL (0.60-1.10); ETHANOL < 0.010 GM/DL (0.0-0.010); GLUCOSE 136 MG/DL (70-104); POTASSIUM 3.5 MMOL/L (3.5-5.1); SODIUM 141 MMOL/L (135-145); TOTAL CARBON DIOXIDE 25.6 MMOL/L (24-32); TOTAL PROTEIN 7.8 G/DL (6.4-8.2); eGFR 71 ML/MIN
[2022-05-02 17:43] LABS: CLARITY,URINE CLEAR (Clear); COLOR,URINE YELLOW (Yellow); GLUCOSE, URINE NEGATIVE (Neg); KETONES,URINE NEGATIVE (Neg); LEUKOCYTE ESTERASE ,URINE NEGATIVE (Neg); NITRITES, URINE NEGATIVE (Neg); OCCULT BLOOD,URINE SMALL (Neg); PROTEIN,URINE 30 mg/dl (Neg); UROBILINOGEN,URINE 0.2 E.U/dL (0.2-1.0)
[2022-05-02 17:58] LABS: UA COLLECTION TYPE CLN CATCH MIDSTREAM
[2022-05-02 18:02] LABS: SQUAMOUS EPITHELIAL CELL,UR FEW /LPF (FEW)
[2022-05-02 18:03] LABS: HYALINE CASTS 0-3 /LPF (NEGATIVE); URINE AMPHETAMINE SCREEN POSITIVE (Neg); URINE BARBITUATE SCREEN NEGATIVE (Neg); URINE BENZODIAZEPINES SCREEN NEGATIVE (Neg); URINE CANNABINOID SCREEN POSITIVE (Neg); URINE COCAINE SCREEN NEGATIVE (Neg); URINE METHADONE SCREEN NEGATIVE (Neg); URINE OPIATE SCREEN NEGATIVE (Neg); URINE PHENCYCLIDINE SCREEN NEGATIVE (Neg)
[2022-05-02 18:06] LABS: BACTERIA,URINE FEW /HPF (Neg); WBC,URINE 0-4 /HPF (0-4)
[2022-05-02] MEDS ORDERED: NALO4SPR BOTHNARES (18:36)
[2022-05-02 18:56] VITALS: BP 169/123
== END 2022-05-02 19:01 | disposition home or self-care (01) ==
LOC: ER 14:53
DX: T40.601A Poisoning by unspecified narcotics, accidental (unintentional), initial encounter (principal); J96.00 Acute respiratory failure, unspecified whether with hypoxia or hypercapnia; I10 Essential (primary) hypertension; E11.9 Type 2 diabetes mellitus without complications; F32.9 Major depressive disorder, single episode, unspecified; F12.90 Cannabis use, unspecified, uncomplicated; F15.90 Other stimulant use, unspecified, uncomplicated; Z90.49 Acquired absence of other specified parts of digestive tract; Z98.890 Other specified postprocedural states; Z59.00 Homelessness unspecified; Z56.0 Unemployment, unspecified; Z72.89 Other problems related to lifestyle; Z79.899 Other long term (current) drug therapy; Z88.5 Allergy status to narcotic agent; Z88.8 Allergy status to other drugs, medicaments and biological substances; Z79.4 Long term (current) use of insulin; Z79.84 Long term (current) use of oral hypoglycemic drugs; Y92.89 Other specified places as the place of occurrence of the external cause
CPT/HCPCS: 36415; 71045; 80053; 80305; 80320; 81001; 85025; 93005; 96374; 99285; J2310; J7030; 96375